=== PATIENT | male | born 1980 | race Caucasian/White ===

== ENCOUNTER 2022-07-09 08:43 | Inpatient (IN) | payer MEDICAID, SELFPAY ==
[2022-07-09] VITALS (14 sets, daily range): BP systolic 145–221; BP diastolic 96–152; PULSE 74–105; RESP 12–105; TEMP 36.4–37; O2SAT 93–98; BMI 42.3; BMI 43.6
--- NOTE | 2022-07-09 08:53 | EKG12_ITS ---
Test Reason : Blood Pressure : / mmHG Vent. Rate : 102 BPM Atrial Rate : 102 BPM P-R Int : 164 ms QRS Dur : 102 ms QT Int : 374 ms P-R-T Axes : 061 -11 108 degrees QTc Int : 487 ms Sinus tachycardia T wave abnormality, consider lateral ischemia Abnormal ECG Confirmed by SHABBIR BULL, MAYELIN ([id number]), school photograph editor CADEN SPEARS ([id number]) on 07/10/2022 9:55:19 AM Referred By: EDSON Confirmed By:MAYELIN SHEA MD
--- NOTE | 2022-07-09 09:05 | RAD_ITS ---
STUDY: X-RAY CHEST REASON FOR EXAM: Male, 42 years old. SOB TECHNIQUE: Single AP portable view of the chest. COMPARISON: None. FINDINGS: EKG electrodes are seen. Increased interstitial markings with Francesco B line suggests a mild degree of CHF. There is no demonstrated pleural abnormality. There is mild cardiac enlargement. Normal mediastinum and tessy. Normal visualized pulmonary arteries. Normal visualized aortic arch and descending thoracic aorta. There are degenerative changes of the visualized thoracic spine. Normal visualized ribs, clavicles, and shoulders. There is no demonstrated abnormality of the visualized soft tissue structures of the upper abdomen. RAD/Chest 1 View IMPRESSION: Findings suggestive of a mild degree of CHF. Mild cardiomegaly. Electronically Signed: Be Dubon MD at 9:46 EST ,
--- NOTE | 2022-07-09 09:09 | ED.VIS.DYS ---
HPI History of Present Illness Chief Complaint: Shortness of Breath Detail of Chief Complaint: 1 to 2 weeks. Informant: patient Onset/Context/Timing Onset: Weeks Context: gradual Timing: Continuous Quality: Positive for Orthopnea Current Severity: Mild Maximum Severity: 6/10 Worsened by: Lying flat Relieved by: Nothing Associated Symptoms cough and white sputum; Negative for fever, chills or sweats Chest Pain: Positive for Dull Narrative Narrative: 42-year-old male history of diabetes, hypertension had a stroke in February. Also history of asthma. States he has had shortness of breath for 1-1/2 to 2 weeks. Cough of white sputum. No hemoptysis. Does have atypical left-sided chest discomfort that is not associated with exertion. Denies any leg pain or swelling. No history of DVT or PE. Negative stress test about a year ago. Has never had a cardiac catheterization. Were supine. Denies any fever or chills. PE Risk Factors: Negative for Cancer, OCP + Smoking + > 35, Prior DVT or PE, Recent immobilization, Recent surgery or Recent travel Prior similar symptoms: No Recent Illness/Hospitalization: No PFSH PFSH Medical History Asthma Diabetes Hx of completed stroke Hypertension Home Medications dulaglutide 0.75 mg/0.5 mL subcutaneous pen injector (Trulicity) mg subcut QWEEK 07/09/22 [History Last Taken Unknown] insulin glargine 100 unit/mL subcutaneous solution (Lantus U-100 Insulin) 19 unit subcut BID 07/09/22 [History Last Taken Unknown] Allergy/AdvReac Type Severity Reaction Status Date / Time No Known Allergies Allergy Verified 07/09/22 08:44 Surgical History History of foot surgery Social History Smoking Status: Former smoker ROS ROS ED ROS Narrative Shortness of breath. Review of Systems ROS Unobtainable: Denies due to encephalopathy Constitutional Constitutional ED: Denies chills or fever(s) Eyes Eyes: Denies blurry vision ENT ENT ED: Denies ear pain Cardiovascular Cardiovascular: Reports chest pain; Denies palpitations or racing heartbeat Respiratory/Chest Respiratory/Chest: Reports cough and dyspnea Gastrointestinal Gastrointestinal: Denies abdominal pain Genitourinary Genitourinary ED: Denies dysuria or hematuria Musculoskeletal Musculoskeletal: Denies arthralgias Integumentary Denies abscess Neurologic Neurologic: Denies headache(s) Psychiatric Psychiatric: Denies anxiety or depression Endocrine Endocrinology: Denies cold intolerance Hematologic/Lymphatic Hematologic/Lymphatic: Denies easy bleeding Allergic/Immunologic Allergic/Immunologic ED: Denies mouth swelling or tongue swelling EXAM Physical Exam Narrative Exam Narrative: 42-year-old male no acute distress. Vital signs are stable. Blood pressure elevated 178/110. Pulse ox 93% on room air no hypoxia. H EENT exam unremarkable. Neck nontender. No JVD. No lymphadenopathy. Lungs clear to auscultation bilaterally. Heart tachycardic rate about 105 no murmur. Chest wall nontender. Abdomen soft nontender. Moving all 4 extremities. Equal symmetrical radial pulses. Calves are nontender that edema or cords. Neurologically is awake and alert with no focal motor deficits. Const Vital Signs: 07/09/22 08:44 07/09/22 08:49 07/09/22 08:49 Temperature 97.8 F Temperature Source Temporal Pulse Rate 102 H Respiratory Rate 18 105 H Respiratory Effort Respiratory Depth Respiratory Pattern Blood Pressure 178/110 H Blood Pressure Mean 132 Pulse Ox 93 95 Oxygen Delivery Method Room Air Room Air Room Air 07/09/22 08:59 07/09/22 09:04 07/09/22 09:07 Temperature Temperature Source Pulse Rate 105 H 104 H Respiratory Rate 20 H 20 H Respiratory Effort Normal Respiratory Depth Normal Respiratory Pattern Normal Blood Pressure 203/135 H Blood Pressure Mean 157 Pulse Ox 94 93 Oxygen Delivery Method Room Air Room Air 07/09/22 11:37 Temperature Temperature Source Pulse Rate 91 Respiratory Rate 17 Respiratory Effort Respiratory Depth Respiratory Pattern Blood Pressure 221/128 H Blood Pressure Mean 159 Pulse Ox 96 Oxygen Delivery Method Room Air Positive well nourished, well developed and obese; Negative for cachectic, contractures or unkempt General Appearance ED: well developed and NAD; Negative for unkempt, cachectic, contractures or pallor Nutritional Appearance: obese; Negative for cachectic HEENT Reports moist mucous membranes; Denies dry mucous membranes atraumatic; Negative for trauma or tenderness Mouth ED: No dry mucous membranes Mouth: No dry mucous membranes Eyes PERRL and EOMs intact bilaterally General Eye ED: Negative for pale conjunctiva or scleral icterus Neck no lymphadenopathy, supple, no meningeal signs and no JVD General: Negative for tenderness Lymph Lymphatic: Negative for other Chest Wall Chest: Negative for other Resp normal respiratory effort and clear to auscultation bilaterally Effort and Inspection: Negative for pain with movement Auscultation: Negative for rales, rhonchi or wheezes Cardio regular rhythm, S1 normal heart sound, S2 normal heart sound and no murmurs; Negative for regular rate Rate: tachycardic Rhythm: Negative for abnormal rhythm GI non-tender, non-distended and no masses Inspection: Negative for other Auscultation: normoactive bowel sounds Palpation: soft; Negative for tender or guarding Back/Spine no CVA tenderness; Negative for normal to inspection General Back: Negative for CVA tenderness Extremity normal to inspection General Extremety ED: Negative for edema or tenderness General Extremity: Negative for edema Neuro oriented x3 Sensorium / Orientation: alert, oriented to person, oriented to place and oriented to time; Negative for orientation impaired, confused, lethargic or stuporous Motor Exam: strength 5/5 throughout Psych mental status grossly normal Appearance: Negative for unkempt Attitude: No agitated Mood & Affect: Negative for depressed, anxious or tearful Thought Process: normal thought process Skin no wounds and skin turgor normal General Skin Exam: Negative for jaundice or pallor Rashes: no rashes Trauma: Negative for abrasion or laceration MDM MDM MDM Narrative Medical decision making narrative: 42-year-old male with shortness of breath for 1 to 2 weeks. History of prior stroke, diabetes and hypertension. Negative stress test within the last year. No prior heart cath. No history of DVT or PE. No recent travel, surgery or immobilization. Patient undergo cardiac work-up along with a chest x-ray for possible pneumonia versus effusion versus failure. Also COVID test. Patient has pulmonary edema on his chest x-ray. He has been noncompliant with his blood pressure medication for a year due to he is having difficulty affording it. I think he has CHF from chronic hypertension and medical noncompliance. I spoke to mortgage banker on-call and we agreed the patient should be admitted for further evaluation and blood pressure control. Discussed that with the patient is comfortable with the plan. I will give him a dose of IV Lasix and determine if we need to control his blood pressure Lab Data Attestation: I reviewed the patient's lab results. Lab results narrative: CBC shows a white count of 14.4. H&H of 15 and 47. Platelets 270. Electrolytes show a gap of 3 normal BUN of 12 creatinine 0.8. Glucose 189. Troponin is normal at 54. COVID test is negative. Labs: Laboratory Results - last 24 hr 07/09/22 07/09/22 09:13 09:13 WBC 14.4 H RBC 5.51 Hgb 15.2 Hct 47.0 MCV 85.3 MCH 27.6 MCHC 32.3 RDW Std Deviation 44.1 H RDW Coeff of Jono 14.1 Plt Count 270 MPV 10.0 Immature Gran % (Auto) 0.500 Neut % (Auto) 71.1 H Lymph % (Auto) 17.8 L [place] % (Auto) 8.6 Eos % (Auto) 1.4 Baso % (Auto) 0.6 Absolute Neuts (auto) 10.2 H Absolute Lymphs (auto) 2.56 Nucleated RBC % 0 Sodium 138 Potassium 4.5 Chloride 105 Carbon Dioxide 30.0 Anion Gap 3 L BUN 12 Creatinine 0.82 Estim Creat Clear Calc 118.70 Est GFR (MDRD) Af Amer 130 Est GFR (MDRD) Non-Af 108 BUN/Creatinine Ratio 14.5 Glucose 189 H Calcium 8.8 Troponin I High Sens 54 Radiography Chest X-Ray - ED: 1 View, Read by ED Physician, Read by Radiologist, Mediastinum, Bony Structures, Cardiomegaly and CHF Diagnostic Testing: Clinical Impression(s) from Imaging Studies Chest X-Ray 07/09/22 09:05 IMPRESSION: Findings suggestive of a mild degree of CHF. Mild cardiomegaly. Electronically Signed: Be Dubon MD at 9:46 EST , Chest x-ray shows pulmonary edema consistent with CHF. No infiltrate. Single view interpreted both by myself and the radiologist. Mild cardiomegaly. Rhythm Strip Rhythm Strip: Sinus Tach Rate: 102 Ectopy: None EKG Initial EKG: Attestation: I personally reviewed and interpreted this EKG as follows: Interpretation: No Acute Injury Pattern and Sinus Tachycardia Comments: Sinus tachycardia rate of 1002 no acute signs SC. This exam and change from an EKG from 2017. Prior: Unchanged Discharge Plan Triage Chief Complaint: Shortness of Breath ED Provider: Tyrone Ford Dx/Rx/DC Orders Clinical Impression: CHF (congestive heart failure), Acute dyspnea, Hypertension Prescriptions: No Action insulin glargine [Lantus U-100 Insulin] 100 unit/mL Solution 19 unit SUBCUT BID Trulicity 0.75 mg/0.5 mL Pen Injector SUBCUT QWEEK Primary Care Provider: Cm Hand Referrals: Cm Hand DO [Primary Care Provider] - Disposition Disposition: Acute Care Hospital [facility]
[2022-07-09 09:24] LABS: Absolute Lymphocyte Count 2.56 X10^3/uL (0.83-4.51); Absolute Neutrophil Count 10.2 X10^3/uL (2.0-7.7); Basophil# 0.08 X10^3/uL; Basophil% 0.6 % (0-1); Eosinophils% 1.4 % (0-5); Hemoglobin 15.2 g/dL (13.0-16.5); Lymphocyte # 2.56 X10^3/ul (0.83-4.51); Lymphocyte % 17.8 % (19-41); Mean Corp Hgb Conc 32.3 g/dL (32-36); Mean Corpuscular Hgb 27.6 pg (27.0-32.0); Mean Corpuscular Volume 85.3 fL (80-94); Monocyte# 1.24 X10^3/uL; Monocyte% 8.6 % (0-10); NRBC Flagged by Analyzer 0 % (0-5); Neutrophil # 10.24 X10^3/uL (2.7-7.7); Neutrophil % 71.1 % (47-70); Platelet Count 270 K/mm3 (150-450); RBC Distribution Width CV 14.1 % (11.6-14.6); RBC Distribution Width SD 44.1 fl (35.1-43.9); Red Blood Count 5.51 M/mm3 (4.6-6.2); White Blood Count 14.4 K/mm3 (4.4-11.0)
[2022-07-09 09:43] LABS: Anion Gap 3 (5-15); BUN 12 mg/dL (7-18); BUN/Creat Ratio 14.5 RATIO (10-20); Calcium,Total 8.8 mg/dL (8.5-10.1); Chloride 105 mmol/L (98-107); Creatinine, Serum 0.82 mg/dL (0.70-1.30); EST Glomerular Filtration Rate 108 mL/min (>60); Est Glom Filt Rate - Afr Amer 130 mL/min (>60); Glucose 189 mg/dL (74-106); Potassium 4.5 mmol/L (3.5-5.1); Sodium Level 138 mmol/L (136-145); Troponin-I HS 54 pg/mL (3.0-78.0)
[2022-07-09] MEDS: Metoprolol Tartrate 5 MG/5 ML Vial IV ×3 (13:24→13:34)
[2022-07-09] MEDS: Furosemide 40 MG/4 ML Vial IV ×2 (13:37→17:20)
--- NOTE | 2022-07-09 13:41 | HP.PCM.HOS_ITS ---
HPI - General General Date of Service: 07/09/22 Chief Complaint: Shortness of breath HPI Narrative CELY ANN, is a 42 M who presents with increasing shortness of breath. Patient states that he actually gets it when he lays flat. Symptoms have persisted over the past week and sought evaluation. Patient had chest x-ray that is concerning for pulmonary vascular congestion. Patient's blood pressures were elevated in the 200s. They reached out to cardiology recommended bring patient in for further evaluation. They spoke with me and I advised giving him something for his blood pressure and patient received 5 mg of IV metoprolol. Patient additionally also received 40 mg of IV furosemide. Patient denies have a history of heart disease [facility] Medical History (Updated 07/09/22 @ 13:[address] Tristan Sanon DO) Asthma Diabetes Hx of completed stroke Hypertension JARAD (obstructive sleep apnea) Home Medications dulaglutide 0.75 mg/0.5 mL subcutaneous pen injector (Trulicity) 0.75 mg subcut QWEEK DM 07/09/22 [History Last Taken 07/05/22] insulin glargine 100 unit/mL subcutaneous solution (Lantus U-100 Insulin) 19 unit subcut BID DM 07/09/22 [History Last Taken 07/08/22] Allergy/AdvReac Type Severity Reaction Status Date / Time No Known Allergies Allergy Verified 07/09/22 08:44 Family History (Updated 07/09/22 @ 13:[address] Tristan Sanon DO) Other Heart disease Surgical History History of foot surgery Social History (Updated 07/09/22 @ 13:[address] Tristan Sanon DO) Smoking Status: Former smoker substance use type: marijuana ROS ROS Narrative Lower extremity edema. No chest pain or palpitations. Does get diaphoretic with his dyspnea. ROS Vital Signs Vital Signs Vital Signs: 07/09/22 08:44 07/09/22 08:49 07/09/22 08:49 Temperature 36.6 C Temperature Source Temporal Pulse Rate 102 H Respiratory Rate 18 105 H Respiratory Effort Respiratory Depth Respiratory Pattern Blood Pressure 178/110 H Blood Pressure Mean 132 Pulse Ox 93 95 Oxygen Delivery Method Room Air Room Air Room Air 07/09/22 08:59 07/09/22 09:04 07/09/22 09:07 Temperature Temperature Source Pulse Rate 105 H 104 H Respiratory Rate 20 H 20 H Respiratory Effort Normal Respiratory Depth Normal Respiratory Pattern Normal Blood Pressure 203/135 H Blood Pressure Mean 157 Pulse Ox 94 93 Oxygen Delivery Method Room Air Room Air 07/09/22 11:37 Temperature Temperature Source Pulse Rate 91 Respiratory Rate 17 Respiratory Effort Respiratory Depth Respiratory Pattern Blood Pressure 221/128 H Blood Pressure Mean 159 Pulse Ox 96 Oxygen Delivery Method Room Air Weight Weight: 133.8 kg Body Mass Index (BMI) 42.3 Physical Exam Const alert and no apparent distress HEENT normocephalic, head/scalp atraumatic, hearing grossly normal bilaterally and moist oral mucous membranes Neck no lymphadenopathy Neck Narrative: Thick neck tissue but could not see any JVD Resp normal respiratory effort and no retractions Resp Narrative: Diminished breath sounds bilaterally Cardio regular rate, regular rhythm, S1 normal heart sound and S2 normal heart sound GI normal to inspection, nondistended, normoactive bowel sounds, soft to palpation, non-tender and non-distended Extremity normal to inspection Neuro moves all extremities Psych affect normal Results Lab / Micro Data Result Diagrams: 07/09/22 09:13 07/09/22 09:13 Labs: Laboratory Results - last 24 hr 07/09/22 09:13: WBC 14.4 H, RBC 5.51, Hgb 15.2, Hct 47.0, MCV 85.3, MCH 27.6, MCHC 32.3, RDW Std Deviation 44.1 H, RDW Coeff of Jono 14.1, Plt Count 270, MPV 10.0, Immature Gran % (Auto) 0.500, Neut % (Auto) 71.1 H, Lymph % (Auto) 17.8 L, [place] % (Auto) 8.6, Eos % (Auto) 1.4, Baso % (Auto) 0.6, Absolute Neuts (auto) 10.2 H, Absolute Lymphs (auto) 2.56, Nucleated RBC % 0 07/09/22 09:13: Sodium 138, Potassium 4.5, Chloride 105, Carbon Dioxide 30.0, Anion Gap 3 L, BUN 12, Creatinine 0.82, Estim Creat Clear Calc 118.70, Est GFR (MDRD) Af Amer 130, Est GFR (MDRD) Non-Af 108, BUN/Creatinine Ratio 14.5, Glucose 189 H, Calcium 8.8, Troponin I High Sens 54 Micro: Microbiology 07/09/22 09:13 Nasal Secretion SARS-CoV-2 Antigen (Rapid) - Final Rhythm Strip Rhythm Strip: Sinus Tach Rate: 102 Ectopy: None Radiology Impression Chest X-Ray 07/09/22 09:05 IMPRESSION: Findings suggestive of a mild degree of CHF. Mild cardiomegaly. Electronically Signed: Be Dubon MD at 9:46 EST , Assessment & Plan Assessment/Plan (1) CHF (congestive heart failure): PLAN: Unclear type Continue with furosemide 40 mg IV twice daily Check echo Consult cardiology Patient does have untreated obstructive sleep apnea so there may be a component of pulmonary vascular hypertension (2) Hypertensive urgency: PLAN: Patient received 4 mg of furosemide and 5 mg of metoprolol in the emergency room. Start lisinopril 20 mg twice daily Hold off on further beta-blockers in light of heart failure As needed hydralazine (3) Diabetes: PLAN: Type II Insulin-dependent Continue with glargine Sliding scale insulin PLAN: Plan Chronic conditions * JARAD: Noncompliant with CPAP and has not used in years. May be complicating his heart failure management in the long-term. * Morbid obesity with a BMI of 42.3. Will consult nutrition for further advice and recommendations. VTE prophylaxis with subcu Charges/Coding Visit Charges Inpatient E&M: 55216 Init Hosp L3
--- NOTE | 2022-07-09 16:48 | ECHOCS_ITS ---
Reason For Study: CHF Procedure This was a 2D Doppler, Color Flow transthoracic echocardiogram. The study was technically difficult. Contrast injection was performed. Exam performed portable in patient room. Left Ventricle Normal LV size. Moderate concentric left ventricular hypertrophy. Left ventricular systolic function is normal. The estimated ejection fraction is 53 %. No regional wall motion abnormalities noted. Right Ventricle Normal RV size. Normal systolic function. Atria The left atrium is moderately enlarged. Mitral Valve Mitral valve not well visualized. Tricuspid Valve The tricuspid valve is not well visualized. Pulmonic Valve The pulmonic valve is not well visualized. Great Vessels Normal aortic root. The pulmonary artery is normal size. Pericardium/Pleural No pericardial effusion. Medication Diluted definity 1.5ml given slow IV push to enhance endocardial definition. MMode/2D Measurements & Calculations LVIDd: 5.7 cm IVSd: 1.8 cm Ao root diam: 3.5 cm LVIDs: 5.0 cm LVPWd: 1.4 cm LA dimension: 4.7 cm FS: 12.0 % LAV(MOD-bp): 78.6 ml LVAd ap4: 46.4 cm2 SV(MOD-sp4): 73.6 ml LAV(MOD-bp) Indexed: 31.9 ml/m2 LVLd ap4: 9.0 cm LAV(MOD-sp2): 62.9 ml EDV(MOD-sp4): 196.3 ml LAV(MOD-sp4): 92.8 ml EDV(sp4-el): 203.6 ml LVAs ap4: 34.7 cm2 LVLs ap4: 8.3 cm ESV(MOD-sp4): 122.7 ml ESV(sp4-el): 123.1 ml EF(MOD-sp4): 37.5 % EF(sp4-el): 39.5 % SV(sp4-el): 80.5 ml LA A4 area: 26.2 cm2 Time Measurements MV dec time: 0.15 sec Doppler Measurements & Calculations MV E max terry: 97.6 cm/sec Lat Peak E' Terry: 7.9 cm/sec Med Peak E' Terry: 8.6 cm/sec MV A max terry: 57.8 cm/sec E/E' lat: 12.4 E/E' med: 11.3 MV E/A: 1.7 MV V2 max: 125.5 cm/sec MV P1/2t max terry: 130.6 cm/sec Ao V2 max: 114.2 cm/sec MV max P.3 mmHg MV P1/2t: 51.1 msec Ao max P.2 mmHg MV V2 mean: 60.8 cm/sec MV mean P.8 mmHg MV dec slope: 748.5 cm/sec2 MV V2 VTI: 19.6 cm MVA(P1/2t): 4.3 cm2 LV V1 max: 107.9 cm/sec PA V2 max: 91.2 cm/sec LV V1 max P.7 mmHg PA V2 mean: 61.7 cm/sec ECHO/Echo Complete W/ Contrast Interpretation Summary Normal LV size. Left ventricular systolic function is normal. The estimated ejection fraction is 53 %. Moderate concentric left ventricular hypertrophy. Contrast injection was performed. Ordering Physician: Tristan Sanon Referring Physician: Cm Hand Performed By: Memo Ibarra RCS
[2022-07-09] MEDS: Lisinopril 20 MG Tablet PO ×2 (17:20→20:44)
[2022-07-09] MEDS: Insulin Lispro 100 UNIT/ML INSULN.PEN SC (17:28)
--- NOTE | 2022-07-09 17:38 | PCM.CONS.C ---
Assessment & Plan Assessment/Plan (1) Hypertensive urgency: PLAN: Patient presents with hypertensive urgency. He does have a known history of hypertension. I will recommend that we obtain an echocardiogram to assess his ventricular function. His electrocardiogram did not demonstrate any acute changes. In the meantime I will recommend that we start him on the following Lisinopril 20 mg twice a day Add amlodipine 10 mg a day Depending on the results of the echocardiogram we will consider an additional agent together with his blood pressure response over the next 24 hours. (2) CHF (congestive heart failure): PLAN: He does have likely diastolic heart failure. I will like to obtain a natruretic peptide level. The echocardiogram would help in assessing his ventricular function. Depending on those findings further recommendations will be made. I have told him about the importance of compliance with his medications. He appears to understand. Thank you for allowing me to participate in the care of your patient. Please don't hesitate to call if any issues arise. HPI Consult Data Date of Consult: 07/09/22 HPI Narrative HPI Narrative: CELY ANN, is a 42 M who presents to the emergency room with complaints of shortness of breath. He says that he is a known hypertensive but has not been compliant with his medications because he cannot afford them. He also has a history of diabetes mellitus. He has apparently been applying for disability and has not been able to get that taken care of. He therefore presented to the emergency room where his blood pressure was noted to be over 200 mmHg systolic. Cardiology was called for further evaluation and management. At this particular time he denies any chest pain or shortness of breath or paroxysmal nocturnal dyspnea or pedal edema. His electrocardiogram in the emergency room demonstrated sinus rhythm with no acute changes. REPLACED BY [facility] Medical History Asthma Diabetes Hx of completed stroke Hypertension JARAD (obstructive sleep apnea) Home Medications dulaglutide 0.75 mg/0.5 mL subcutaneous pen injector (Trulicity) 0.75 mg subcut QWEEK DM 07/09/22 [History Last Taken 07/05/22] insulin glargine 100 unit/mL subcutaneous solution (Lantus U-100 Insulin) 19 unit subcut BID DM 07/09/22 [History Last Taken 07/08/22] Allergy/AdvReac Type Severity Reaction Status Date / Time No Known Allergies Allergy Verified 07/09/22 08:44 Family History Other Heart disease Surgical History History of foot surgery Social History Smoking Status: Former smoker substance use type: marijuana ROS Constitutional Constitutional: Denies fever(s) or weight loss Eyes Eyes: Reports systems reviewed and no addt'l complaints, except as documented ENT HEENT: Reports systems reviewed and no addt'l complaints, except as documented Cardiovascular Cardiovascular: Reports dyspnea at rest and dyspnea on exertion; Denies chest pain at rest, chest pain with activity, edema, palpitations or paroxysmal nocturnal dyspnea Respiratory/Chest Respiratory/Chest: Reports shortness of breath at rest and shortness of breath with exertion; Denies dyspnea on exertion or productive cough Gastrointestinal Gastrointestinal: Denies change in bowel habits, nausea, vomiting or weight changes Genitourinary Genitourinary: Denies difficulty urinating Musculoskeletal Musculoskeletal: Denies joint stiffness or muscle weakness Integumentary Integumentary: Denies lesions Neurologic Neurologic: Denies dizziness or syncope Psychiatric Psychiatric: Denies anxiety Endocrine Endocrinology: Denies excessive sweating or fatigue Hematologic/Lymphatic Hematologic/Lymphatic: Denies anemia Allergic/Immunologic Allergic/Immunologic: Denies seasonal rhinorrhea Physical Exam Const alert, oriented x3 and no apparent distress General Appearance: cooperative HEENT hearing grossly normal bilaterally Head and Scalp: atraumatic Eyes EOMs intact bilaterally Neck General: normal visual inspection Chest inspection of chest normal and palpation of chest normal Resp normal respiratory effort Auscultation: clear to auscultation bilaterally Cardio regular rate, regular rhythm, S1 normal heart sound and S2 normal heart sound Jugular Venous Distention: JVD GI normal to inspection, nondistended, normoactive bowel sounds Extremity normal capillary refill and no pedal edema Peripheral Pulses: Yes pulses 2+ throughout and femoral pulses present Skin no rashes or lesions noted Neuro oriented x3 and CN's II-XII intact bilaterally Psych Appearance: grossly normal and appropriate Risk Stratification Risk Stratification Applicable: No Objective Data Vital Signs: Vital Signs Temp Pulse Resp BP Pulse Ox O2 Del Method O2 Flow Rate 98.0 F 87 18 174/108 H 96 Nasal Cannula 2 02/27/23 16:59 07/09/22 16:59 07/09/22 16:59 07/09/22 16:59 07/09/22 16:59 07/09/22 16:59 07/09/22 16:59 Oxygen Flow Rate (L/min) 2 Oxygen Delivery Method Nasal Cannula Weight: 295 lb 6.711 oz Body Mass Index (BMI) 43.6 Lab / Micro Data Result Diagrams: 07/09/22 09:13 07/09/22 09:13 Labs: Laboratory Results - last 24 hr 07/09/22 09:13: WBC 14.4 H, RBC 5.51, Hgb 15.2, Hct 47.0, MCV 85.3, MCH 27.6, MCHC 32.3, RDW Std Deviation 44.1 H, RDW Coeff of Jono 14.1, Plt Count 270, MPV 10.0, Immature Gran % (Auto) 0.500, Neut % (Auto) 71.1 H, Lymph % (Auto) 17.8 L, [place] % (Auto) 8.6, Eos % (Auto) 1.4, Baso % (Auto) 0.6, Absolute Neuts (auto) 10.2 H, Absolute Lymphs (auto) 2.56, Nucleated RBC % 0 07/09/22 09:13: Sodium 138, Potassium 4.5, Chloride 105, Carbon Dioxide 30.0, Anion Gap 3 L, BUN 12, Creatinine 0.82, Estim Creat Clear Calc 118.70, Est GFR (MDRD) Af Amer 130, Est GFR (MDRD) Non-Af 108, BUN/Creatinine Ratio 14.5, Glucose 189 H, Calcium 8.8, Troponin I High Sens 54 Micro: Microbiology 07/09/22 09:13 Nasal Secretion SARS-CoV-2 Antigen (Rapid) - Final Rhythm Strip Rhythm Strip: Sinus Tach Rate: 102 Ectopy: None Cardiology Labs/Tests 07/09/22 09:13: WBC 14.4 H, RBC 5.51, Hgb 15.2, Hct 47.0, MCV 85.3, MCH 27.6, MCHC 32.3, Plt Count 270, MPV 10.0, Immature Gran % (Auto) 0.500, Neut % (Auto) 71.1 H, Lymph % (Auto) 17.8 L, [place] % (Auto) 8.6, Eos % (Auto) 1.4, Baso % (Auto) 0.6, Absolute Neuts (auto) 10.2 H, Nucleated RBC % 0 07/09/22 09:13: Sodium 138, Potassium 4.5, Chloride 105, Carbon Dioxide 30.0, Anion Gap 3 L, BUN 12, Creatinine 0.82, Est GFR (MDRD) Af Amer 130, Est GFR (MDRD) Non-Af 108, BUN/Creatinine Ratio 14.5, Glucose 189 H, Calcium 8.8 Rhythm: EKG: ECHO: Stress Test: Cardiac Cath: PCI: CT Surgery: Holter monitor: EPS: PPM: CXR: Chest CT Scan: Radiography Diagnostic Testing: Radiology Impression Chest X-Ray 07/09/22 09:05 IMPRESSION: Findings suggestive of a mild degree of CHF. Mild cardiomegaly. Electronically Signed: Be Dubon MD at 9:46 EST ,
[2022-07-09 18:03] LABS: BNP,B-Type NATRIURETIC PEPTIDE 105.5 pg/mL (0-100)
[2022-07-09 18:36] LABS: Bedside Glucose 188 mg/dL (74-106)
[2022-07-09 19:44] LABS: Troponin-I HS 55 pg/mL (3.0-78.0)
[2022-07-09] MEDS: Insulin Glargine-YFGN 100 UNIT/ML Pen 19 UNIT SC (20:43)
[2022-07-09] MEDS: Enoxaparin 40 MG/0.4 ML Syringe SC (20:43)
[2022-07-09] MEDS: MELATONIN 10 MG TABLET 5 MG PO (20:44)
[2022-07-09 21:20] LABS: Bedside Glucose 127 mg/dL (74-106)
[2022-07-10] VITALS (7 sets, daily range): BP systolic 135–172; BP diastolic 88–119; PULSE 86–91; RESP 16–18; TEMP 36.3–36.8; O2SAT 93–97
[2022-07-10 00:35] LABS: Troponin-I HS 71 pg/mL (3.0-78.0)
[2022-07-10 05:47] LABS: Absolute Lymphocyte Count 3.31 X10^3/uL (0.83-4.51); Absolute Neutrophil Count 7.8 X10^3/uL (2.0-7.7); Basophil# 0.07 X10^3/uL; Basophil% 0.6 % (0-1); Eosinophil# 0.18 X10^3/uL; Eosinophils% 1.4 % (0-5); Hematocrit 45.8 % (40-54); Hemoglobin 14.6 g/dL (13.0-16.5); Lymphocyte # 3.31 X10^3/ul (0.83-4.51); Lymphocyte % 26.5 % (19-41); Mean Corp Hgb Conc 31.9 g/dL (32-36); Mean Corpuscular Hgb 27.3 pg (27.0-32.0); Mean Corpuscular Volume 85.6 fL (80-94); Mean Platelet Vol. 10.4 fl (6.2-12.0); Monocyte# 1.11 X10^3/uL; Monocyte% 8.9 % (0-10); NRBC Flagged by Analyzer 0 % (0-5); Neutrophil % 62.3 % (47-70); Platelet Count 236 K/mm3 (150-450); RBC Distribution Width CV 14.2 % (11.6-14.6); RBC Distribution Width SD 44.2 fl (35.1-43.9); Red Blood Count 5.35 M/mm3 (4.6-6.2); White Blood Count 12.5 K/mm3 (4.4-11.0)
[2022-07-10 06:34] LABS: Anion Gap 4 (5-15); BUN 14 mg/dL (7-18); Calcium,Total 8.9 mg/dL (8.5-10.1); Chloride 105 mmol/L (98-107); Cholesterol 184 mg/dL (200); Creatinine, Serum 0.82 mg/dL (0.70-1.30); EST Glomerular Filtration Rate 108 mL/min (>60); Est Glom Filt Rate - Afr Amer 131 mL/min (>60); Estimated Creatinine Clearance 114.96 ml/min; Glucose 136 mg/dL (74-106); High Density Lipoprotein 29 mg/dL; Potassium 3.9 mmol/L (3.5-5.1); Sodium Level 138 mmol/L (136-145); Thyroid Stim Hormone (TSH) 1.96 uIU/mL (0.358-3.74); Triglycerides 178 mg/dL; Very Low Density Lipoprotein 36 mg/dL (5-40)
[2022-07-10 06:50] LABS: Bedside Glucose 133 mg/dL (74-106)
--- NOTE | 2022-07-10 07:36 | PCM.PN.CARD ---
Subjective Subjective Patient was seen and evaluated and appears to be doing well this morning Objective Data Vital Signs: Vital Signs Temp Pulse Resp BP Pulse Ox O2 Del Method O2 Flow Rate 98.3 F 88 18 169/95 H 94 Room Air 2 07/10/22 03:00 07/10/22 03:00 07/10/22 03:00 07/10/22 03:00 07/10/22 03:00 07/10/22 03:00 07/09/22 21:51 Oxygen Flow Rate (L/min) 2 Oxygen Delivery Method Room Air Weight: 295 lb 6.711 oz Body Mass Index (BMI) 43.6 Lab / Micro Data Result Diagrams: 07/10/22 04:38 07/10/22 04:38 Labs: Laboratory Results - last 24 hr 07/09/22 09:13: WBC 14.4 H, RBC 5.51, Hgb 15.2, Hct 47.0, MCV 85.3, MCH 27.6, MCHC 32.3, RDW Std Deviation 44.1 H, RDW Coeff of Jono 14.1, Plt Count 270, MPV 10.0, Immature Gran % (Auto) 0.500, Neut % (Auto) 71.1 H, Lymph % (Auto) 17.8 L, [place] % (Auto) 8.6, Eos % (Auto) 1.4, Baso % (Auto) 0.6, Absolute Neuts (auto) 10.2 H, Absolute Lymphs (auto) 2.56, Nucleated RBC % 0 07/09/22 09:13: Sodium 138, Potassium 4.5, Chloride 105, Carbon Dioxide 30.0, Anion Gap 3 L, BUN 12, Creatinine 0.82, Estim Creat Clear Calc 118.70, Est GFR (MDRD) Af Amer 130, Est GFR (MDRD) Non-Af 108, BUN/Creatinine Ratio 14.5, Glucose 189 H, Calcium 8.8, Troponin I High Sens 54 07/09/22 09:13: B-Natriuretic Peptide 105.5 H 07/09/22 17:18: POC Glucose 188 H 07/09/22 19:12: Troponin I High Sens 55 07/09/22 20:42: POC Glucose 127 H 07/09/22 23:59: Troponin I High Sens 71 07/10/22 04:38: WBC 12.5 H, RBC 5.35, Hgb 14.6, Hct 45.8, MCV 85.6, MCH 27.3, MCHC 31.9 L, RDW Std Deviation 44.2 H, RDW Coeff of Jono 14.2, Plt Count 236, MPV 10.4, Immature Gran % (Auto) 0.300, Neut % (Auto) 62.3, Lymph % (Auto) 26.5, [place] % (Auto) 8.9, Eos % (Auto) 1.4, Baso % (Auto) 0.6, Absolute Neuts (auto) 7.8 H, Absolute Lymphs (auto) 3.31, Nucleated RBC % 0 07/10/22 04:38: Sodium 138, Potassium 3.9, Chloride 105, Carbon Dioxide 29.0, Anion Gap 4 L, BUN 14, Creatinine 0.82, Estim Creat Clear Calc 114.96, Est GFR (MDRD) Af Amer 131, Est GFR (MDRD) Non-Af 108, BUN/Creatinine Ratio 17.0, Glucose 136 H, Calcium 8.9, Triglycerides 178, Cholesterol 184, LDL Cholesterol 119, VLDL Cholesterol 36, HDL Cholesterol 29 L, TSH 1.96 07/10/22 06:28: POC Glucose 133 H Micro: Microbiology 07/09/22 09:13 Nasal Secretion SARS-CoV-2 Antigen (Rapid) - Final Rhythm Strip Rhythm Strip: Sinus Tach Rate: 102 Ectopy: None Cardiology Labs/Tests 07/09/22 09:13: WBC 14.4 H, RBC 5.51, Hgb 15.2, Hct 47.0, MCV 85.3, MCH 27.6, MCHC 32.3, Plt Count 270, MPV 10.0, Immature Gran % (Auto) 0.500, Neut % (Auto) 71.1 H, Lymph % (Auto) 17.8 L, [place] % (Auto) 8.6, Eos % (Auto) 1.4, Baso % (Auto) 0.6, Absolute Neuts (auto) 10.2 H, Nucleated RBC % 0 07/09/22 09:13: Sodium 138, Potassium 4.5, Chloride 105, Carbon Dioxide 30.0, Anion Gap 3 L, BUN 12, Creatinine 0.82, Est GFR (MDRD) Af Amer 130, Est GFR (MDRD) Non-Af 108, BUN/Creatinine Ratio 14.5, Glucose 189 H, Calcium 8.8 07/09/22 09:13: B-Natriuretic Peptide 105.5 H 07/10/22 04:38: WBC 12.5 H, RBC 5.35, Hgb 14.6, Hct 45.8, MCV 85.6, MCH 27.3, MCHC 31.9 L, Plt Count 236, MPV 10.4, Immature Gran % (Auto) 0.300, Neut % (Auto) 62.3, Lymph % (Auto) 26.5, [place] % (Auto) 8.9, Eos % (Auto) 1.4, Baso % (Auto) 0.6, Absolute Neuts (auto) 7.8 H, Nucleated RBC % 0 07/10/22 04:38: Sodium 138, Potassium 3.9, Chloride 105, Carbon Dioxide 29.0, Anion Gap 4 L, BUN 14, Creatinine 0.82, Est GFR (MDRD) Af Amer 131, Est GFR (MDRD) Non-Af 108, BUN/Creatinine Ratio 17.0, Glucose 136 H, Calcium 8.9, Triglycerides 178, Cholesterol 184, LDL Cholesterol 119, VLDL Cholesterol 36, HDL Cholesterol 29 L Rhythm: EKG: ECHO: Stress Test: Cardiac Cath: PCI: CT Surgery: Holter monitor: EPS: PPM: CXR: Chest CT Scan: Radiography Diagnostic Testing: Radiology Impression Chest X-Ray 07/09/22 09:05 IMPRESSION: Findings suggestive of a mild degree of CHF. Mild cardiomegaly. Electronically Signed: Be Dubon MD at 9:46 EST , Physical Exam Const alert, oriented x3 and no apparent distress General Appearance: cooperative HEENT hearing grossly normal bilaterally Head and Scalp: atraumatic Eyes EOMs intact bilaterally Neck General: normal visual inspection Chest inspection of chest normal and palpation of chest normal Resp normal respiratory effort Auscultation: clear to auscultation bilaterally Cardio regular rate, regular rhythm, S1 normal heart sound and S2 normal heart sound Jugular Venous Distention: JVD GI normal to inspection, nondistended, normoactive bowel sounds Extremity normal capillary refill and no pedal edema Peripheral Pulses: Yes pulses 2+ throughout and femoral pulses present Skin no rashes or lesions noted Neuro oriented x3 and CN's II-XII intact bilaterally Psych Appearance: grossly normal and appropriate Assessment & Plan Assessment/Plan (1) Hypertensive urgency: PLAN: Patient presents with hypertensive urgency. He does have a known history of hypertension. I will recommend that we obtain an echocardiogram to assess his ventricular function. His electrocardiogram did not demonstrate any acute changes. In the meantime I will recommend that we start him on the following Lisinopril 20 mg twice a day Add amlodipine 10 mg a day Depending on the results of the echocardiogram we will consider an additional agent together with his blood pressure response over the next 24 hours. (2) CHF (congestive heart failure): PLAN: He does have likely diastolic heart failure this however appears to be minimal based on his natruretic peptide level. The echocardiogram would help in assessing his ventricular function. Depending on those findings further recommendations will be made. I have told him about the importance of compliance with his medications. He appears to understand. Thank you for allowing me to participate in the care of your patient. Please don't hesitate to call if any issues arise.
[2022-07-10 08:30] LABS: Hemoglobin A1c 7.2 % (3.8-5.6)
[2022-07-10] MEDS: Enoxaparin 40 MG/0.4 ML Syringe SC (09:07)
[2022-07-10] MEDS: hydroCHLOROthiazide 25 MG Tablet PO (09:07)
[2022-07-10] MEDS: amLODIPine 10 MG Tablet PO (09:07)
[2022-07-10] MEDS: Lisinopril 20 MG Tablet PO (09:07)
[2022-07-10] MEDS: Insulin Lispro 100 UNIT/ML INSULN.PEN SC (10:58)
[2022-07-10] MEDS: Insulin Glargine-YFGN 100 UNIT/ML Pen 19 UNIT SC (10:58)
--- NOTE | 2022-07-10 11:33 | CASEMGMT ---
[facility] met with patient as he is listed as self pay. Patient said he applied for Medicaid a year ago and was denied. Patient also applied for disability and was denied. 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 Patient does see Dr Cm Hand when he can. Patient said he cannot afford his medications. SW provided patient with information on prescription assistance programs, [employer], and a Medicaid application. SW will review patient's medications to see if there are any assistance programs available. Danna Jane SYSTEM ADMINISTRATION ADVISORRox CIFUENTES
[2022-07-10 11:40] LABS: Bedside Glucose 210 mg/dL (74-106)
[2022-07-10] MEDS: cloNIDine HCl 0.2 MG Tablet PO (12:00)
--- NOTE | 2022-07-10 13:25 | CASEMGMT ---
RN CM Face to Face with patient for initial transition planning/care coordination assessment. RN CM introduced self and role at [facility]. Patient sitting in chair, alert and oriented. Patient willing to participate in assessment and is able to answer all questions appropriately. Care providers, pharmacy, and demographics verified. Patient wishes to discharge home, denies need for home health at this time. Patient states he has no further needs or concerns at this time. CM to follow for discharge planning needs that may arise. PCP: [facility] Specialists: none Preferred Pharmacy: [facility] retail Insurance: none Prescription Benefit: none, patient to use RX assistance at [facility] Rx Living Will/HPOA: none LNOK: mina Living Arrangements: Patient lives with his mother in a single story home in the basement. Patient is independent and ambulates stairs. Transportation: self, mother DME/HHC: Patient has cane, raised toilet, cane, walker, glucometer with supplies. Patient denies previous HHC or SNF. Disposition Plan: Patient to discharge home with family support and follow-up plans in place. Melida LOJA, RN, CM
--- NOTE | 2022-07-10 14:09 | CHAPLAIN ---
Type of Pastoral Visit _x__ Initial Visit ___ Follow-up Visit ___ On-call Visit ___ General Patient Visit ___ Spiritual Assessment ___ Family Conference ___ Bereavement ___ Rapid Response ___ Code Blue ___ Other (describe below) Pastoral Care Referral From _x__ Patient ___ Family ___ Nurse ___ Physician ___ Stave Mill Hand ___ Assessment Coordinator ___ Other (describe below) Sacrament/Intervention _x__ Active listening ___ Anointing ___ Mandaen ___ Bereavement ___ Communion ___ Mery exploration ___ ___ Life review _x__ Prayer ___ Reconciliation ___ Sacrament of Sick _x__ Supportive presence ___ Wedding ___ Other (describe below) Pastoral Comments patient says he is waiting to be discharged hopefully; pt states he is doing okay; however with more time patient acknowledges that this is because I need to do better with follow up from my stroke; pt states his concern is more for his mother who has cancer; pt disappointed that he was not able to mom to her appointment today; pt welcomes prayer as a good way to address his needs
--- NOTE | 2022-07-10 15:31 | PCM.DC ---
Discharge Instructions Diet Discharge Diet: 1800 Calorie Control Diet Activity Discharge Activity: Return to Normal Activity Weight Bearing Status: Full weight bearing Follow Up Care Test Results: Test results from this visit will be discussed in further detail at your follow-up appointment, if applicable. Discharge Plan Admission Admit Date/Time: 07/09/22 13:35 Primary Reason for Your Visit: Uncontrolled hypertension, congestive heart failure Attending Provider: Regino Durham Primary Care Provider: Cm Hand Consulting Providers: Brent Rouse ; Tristan Sanon Instructions Additional Instructions / Restrictions: See [place] at [facility] to get applied for Medicaid Discharge Orders/Prescriptions Prescriptions: New lisinopril 20 mg Tablet 40 mg PO DAILY Qty: 60 0RF Rx Instructions: Start on 07/11/2022 amlodipine 10 mg Tablet 10 mg PO DAILY Qty: 30 0RF Rx Instructions: Start on 07/11/2022 hydrochlorothiazide 25 mg Tablet 25 mg PO DAILY Qty: 30 0RF Rx Instructions: Started on 07/11/2022 aspirin 81 mg capsule 81 mg PO DAILY Qty: 30 0RF atorvastatin [Lipitor] 20 mg tablet 20 mg PO DAILY Qty: 30 0RF Continued insulin glargine [Lantus U-100 Insulin] 100 unit/mL Solution 19 unit SUBCUT BID Trulicity 0.75 mg/0.5 mL Pen Injector 0.75 mg SUBCUT QWEEK Referrals / Follow Up: Cm Hand DO [Primary Care Provider] - Luisana Damon [Non-Staff] - 07/18/22 10:30 am Disposition Disposition (needs filled in before D/C Order can be placed): Home, Self Care
--- NOTE | 2022-07-10 16:23 | CASEMGMT ---
SW utilized [facility] prescription assistance program for patient as he does not have insurance. Danna CIFUENTES
[2022-07-10 16:55] LABS: Bedside Glucose 145 mg/dL (74-106)
--- NOTE | 2022-07-10 17:26 | PCM.DC.SUM ---
Providers Date of Admission: 07/09/22 Date of Discharge: 07/10/22 Primary Care Physician: Dr. Cm Hand, Consultations 07/09/22 16:48 Consult: Cardiology Routine Consulting Provider: Brent Rouse Reason for Consult: CHF EMERGENT Consult: No MD Notified: Yes Date Notified: 07/09/22 Time Notified: 13:38 Method of Notification: ED Physician Initiated Reason For Visit: HYPERTENSIVE URGENCY Diagnosis Discharge Diagnosis (1) Hypertensive urgency: Status: Acute Code(s): I16.0 - Hypertensive urgency (2) CHF (congestive heart failure): Status: Acute Code(s): I50.9 - Heart failure, unspecified Plan 1. Hypertensive emergency #2 diastolic congestive heart failure #3 type 2 diabetes #4 noncompliance with medical regimen #5 obstructive sleep apnea #6 cerebrovascular disease by history Medications at Discharge Home Medications dulaglutide 0.75 mg/0.5 mL subcutaneous pen injector (Trulicity) 0.75 mg subcut QWEEK DM 07/09/22 insulin glargine 100 unit/mL subcutaneous solution (Lantus U-100 Insulin) 19 unit subcut BID DM 07/09/22 amlodipine 10 mg tablet 10 mg PO DAILY #30 tabs 07/10/22 aspirin 81 mg capsule 81 mg PO DAILY #30 caps 07/10/22 atorvastatin 20 mg tablet (Lipitor) 20 mg PO DAILY #30 tabs 07/10/22 hydrochlorothiazide 25 mg tablet 25 mg PO DAILY #30 tabs 07/10/22 lisinopril 20 mg tablet 40 mg PO DAILY #60 tabs 07/10/22 Hospital Course Operations None Procedures 2-D Echocardiogram Summary of Care Provided Minutes Spent on Discharge: 32 Hospital Course: This 42-year-old white male was seen in the emergency room at [facility] with shortness of breath for approximately 2 weeks. Patient is noncompliant with his medications and was supposed to be taking prescription medications but cannot afford them. Work-up in the emergency room included a chest x-ray which showed changes compatible with CHF, patient's blood pressure was markedly elevated, white count was elevated at 14.4, troponin was normal, patient's COVID test was unremarkable. Patient was admitted to PCU for hypertensive emergency and CHF, he underwent an echocardiogram which showed a normal ejection fraction, he was seen in consultation by cardiology. Patient's blood pressure medicines were adjusted, and an appointment was made for him to be seen at [facility]. On 07/10/2022, patient was seen and examined: On examination he appeared in good health and spirits. Vital signs as documented. Skin warm and dry and without overt rashes. Neck without JVD, neck was supple, trachea midline, thyroid was normal. Lungs clear bilaterally, normal air movement was noted. Heart exam notable for regular rhythm, normal sounds and absence of murmurs, rubs or gallops. Abdomen unremarkable and without evidence of organomegaly, masses, or abdominal aortic enlargement. Bowel sounds are present, abdomen is not distended. Extremities nonedematous, no cyanosis was noted, no clubbing was noted. Neuro: Cranial nerves II through XII are grossly intact, no focal motor deficits were noted, sensation to light touch and pinprick intact, motor exam 5/5 throughout. Psych: Patient is alert and oriented x3, he does not appear anxious or depressed, he does not appear agitated. Patient appears stable for discharge on 07/10/2022. Weight / BMI Weight Weight: 134 kg Body Mass Index (BMI) 43.6 ABG / Lab / Microbiology Data Result Diagrams: 07/10/22 04:38 07/10/22 04:38 Laboratory: Laboratory Results - last 24 hr 07/09/22 09:13: B-Natriuretic Peptide 105.5 H 07/09/22 17:18: POC Glucose 188 H 07/09/22 19:12: Troponin I High Sens 55 07/09/22 20:42: POC Glucose 127 H 07/09/22 23:59: Troponin I High Sens 71 07/10/22 04:38: WBC 12.5 H, RBC 5.35, Hgb 14.6, Hct 45.8, MCV 85.6, MCH 27.3, MCHC 31.9 L, RDW Std Deviation 44.2 H, RDW Coeff of Jono 14.2, Plt Count 236, MPV 10.4, Immature Gran % (Auto) 0.300, Neut % (Auto) 62.3, Lymph % (Auto) 26.5, [place] % (Auto) 8.9, Eos % (Auto) 1.4, Baso % (Auto) 0.6, Absolute Neuts (auto) 7.8 H, Absolute Lymphs (auto) 3.31, Nucleated RBC % 0 07/10/22 04:38: Sodium 138, Potassium 3.9, Chloride 105, Carbon Dioxide 29.0, Anion Gap 4 L, BUN 14, Creatinine 0.82, Estim Creat Clear Calc 114.96, Est GFR (MDRD) Af Amer 131, Est GFR (MDRD) Non-Af 108, BUN/Creatinine Ratio 17.0, Glucose 136 H, Calcium 8.9, Triglycerides 178, Cholesterol 184, LDL Cholesterol 119, VLDL Cholesterol 36, HDL Cholesterol 29 L, TSH 1.96 07/10/22 04:38: Hemoglobin A1c 7.2 H 07/10/22 06:28: POC Glucose 133 H 07/10/22 10:57: POC Glucose 210 H 07/10/22 16:17: POC Glucose 145 H Microbiology: Microbiology 07/09/22 09:13 Nasal Secretion SARS-CoV-2 Antigen (Rapid) - Final Radiography Diagnostic Testing: Radiology Impression Echocardiogram 07/09/22 16:48 Interpretation Summary Normal LV size. Left ventricular systolic function is normal. The estimated ejection fraction is 53 %. Moderate concentric left ventricular hypertrophy. Contrast injection was performed. Ordering Physician: Tristan Sanon Referring Physician: Cm Hand Performed By: Memo Ibarra RCS D/C Instructions Discharge Diet: 1800 Calorie Control Diet Weight Bearing Status: Full weight bearing Meaningful Use Info Meaningful Use Diagnoses (Choose all that apply): CHF CHF ZHANG/ARB ordered at discharge?: Yes Documented LVEF (%): 53 Discharge Plan Admission Admit Date/Time: 07/09/22 13:35 Primary Reason for Your Visit: Uncontrolled hypertension, congestive heart failure Attending Provider: Regino Durham Primary Care Provider: Cm Hand Consulting Providers: Brent Rouse ; Tristan Sanon Instructions Additional Instructions / Restrictions: See [place] at [facility] to get applied for Medicaid Discharge Orders/Prescriptions Prescriptions: New lisinopril 20 mg Tablet 40 mg PO DAILY Qty: 60 0RF Rx Instructions: Start on 07/11/2022 amlodipine 10 mg Tablet 10 mg PO DAILY Qty: 30 0RF Rx Instructions: Start on 07/11/2022 hydrochlorothiazide 25 mg Tablet 25 mg PO DAILY Qty: 30 0RF Rx Instructions: Started on 07/11/2022 aspirin 81 mg capsule 81 mg PO DAILY Qty: 30 0RF atorvastatin [Lipitor] 20 mg tablet 20 mg PO DAILY Qty: 30 0RF Continued insulin glargine [Lantus U-100 Insulin] 100 unit/mL Solution 19 unit SUBCUT BID Trulicity 0.75 mg/0.5 mL Pen Injector 0.75 mg SUBCUT QWEEK Referrals / Follow Up: Cm Hand DO [Primary Care Provider] - Luisana Damon [Non-Staff] - 07/18/22 9:30 am Disposition Disposition (needs filled in before D/C Order can be placed): Home, Self Care Charges/Coding Visit Charges Inpatient E&M: 09646 Disch Hosp >30min
--- NOTE | 2022-07-12 08:47 | CASEMGMT ---
SW had more information on prescription assistance and healthcare for patient after he was discharged. NAHUN mailed an application for assistance with Trulicity and Insulin U-100. NAHUN also sent patient information on Luisana Damon and [facility] financial assistance program. Danna CIFUENTES
== END 2022-07-10 18:12 | disposition home or self-care (01) | DRG 291 ==
LOC: ED 13:06 → PCU 15:36
PROVIDERS: Internal Medicine Cardiovascular Disease; Emergency Provider Emergency Medicine; PCP Preventive Medicine Occupational Medicine; Visit Provider Internal Medicine
DX: I11.0 Hypertensive heart disease with heart failure (principal); I50.31 Acute diastolic (congestive) heart failure; Z68.41 Body mass index [BMI] 40.0-44.9, adult; E11.9 Type 2 diabetes mellitus without complications; Z79.4 Long term (current) use of insulin; E66.01 Morbid (severe) obesity due to excess calories; I16.0 Hypertensive urgency; G47.33 Obstructive sleep apnea (adult) (pediatric); Z91.14 Patient's other noncompliance with medication regimen; Z79.82 Long term (current) use of aspirin; Z79.899 Other long term (current) drug therapy; Z86.73 Personal history of transient ischemic attack (TIA), and cerebral infarction without residual deficits; Z87.891 Personal history of nicotine dependence
CPT/HCPCS: 36415; 71045; 80048; 80061; 82962; 83036; 83880; 84443; 84484; 85025; 87811; 93005; 93306; 94760; 97802; 99285; Q9957; A4216; C8929; J1940

== ENCOUNTER 2022-11-27 11:08 | Emergency (ER) | payer MEDICAID, SELFPAY ==
[2022-11-27 11:09] VITALS: BP 173/103; PULSE 97; RESP 14; TEMP 36.6; O2SAT 98
[2022-11-27 11:16] VITALS: BMI 40.6
[2022-11-27 11:18] VITALS: BMI 40.6
--- NOTE | 2022-11-27 11:32 | CT_ITS ---
INDICATION: Left facial droop EXAMINATION: CT BRAIN - CT Head or Brain W/O Contrast Injection TECHNIQUE: Multiple axial images were obtained of the head without intravenous contrast. A radiation dose optimization technique was used for this scan. IV Contrast dosage and agent: None. RADIATION DOSAGE (If Supplied By Facility): CTDIvol = ( 44.99 ) mGy, DLP = ( 745.49 ) mGycm COMPARISON: MRI brain June 16, 2015 FINDINGS: Hyperdensity noted at 2 sites that might correlate to the basilar artery (series 2 images 8-9 and 12-13, series 602 images 40-41), there is also mild asymmetric increased density in the right middle cerebral artery compared to the left. These findings can be associated with acute thromboembolus. BRAIN PARENCHYMA: No intra- or extra-axial hemorrhage. Subtle, small rounded hypodensities in the bilateral basal ganglia on series 2 image 17 may be sequelae of old ischemic change or volume averaging artifacts of the basilar cisterns. No evidence of acute infarct. No intracranial mass or mass effect. There is preservation of the calderón/white matter interface. Posterior fossa structures are unremarkable. CSF SPACES: Appropriate for age. No hydrocephalus. Basal cisterns are patent. CALVARIUM, SKULL BASE, PARANASAL SINUSES AND MASTOID AIR CELLS: Clear. No discrete lytic or blastic abnormalities. ORBITS: Both globes, extraocular muscles, optic nerves and retrobulbar fat appear unremarkable. CT/Brain/Head without Contrast IMPRESSION: 1. Hyperdensities of uncertain significance in the basilar artery as well as the middle cerebral artery branch of the right internal carotid artery. These findings can be associated with acute thromboemboli and, if clinically suspicious, further characterization with CT angiography advised. 2. No sign of acute infarct. No intracranial hemorrhage. Electronically Signed: Roibn Blandon MD at 12:10 EDT Reading Location ID and State: [id number] / Unknown , Service support ,
--- NOTE | 2022-11-27 11:32 | CT_ITS ---
INDICATION: Neck pain, abnormal findings on brain CT EXAMINATION: CT BRAIN WITH CONTRAST TECHNIQUE: Noncontrast axial images were obtained of the brain. Subsequently, routine carotid CT angiogram protocol was performed without and with IV contrast. In addition, images were obtained of the [place]. NASCET criteria using the distal ICAs for comparison were used for evaluation of stenoses. 3D reconstructions were reviewed. A radiation dose optimization technique was used for this scan. IV Contrast dosage and agent: 100mL [id number] COMPARISON: Noncontrast CT brain November 27, 2022 11:44 hours; MRI brain June 16, 2015 FINDINGS: --CT BRAIN: BRAIN PARENCHYMA: No intra- or extra-axial hemorrhage. No evidence of acute infarct. No intracranial mass or mass effect. There is preservation of the calderón/white matter interface. Posterior fossa structures are unremarkable. CSF SPACES: Appropriate for age. No hydrocephalus. Basal cisterns are patent. CALVARIUM, SKULL BASE, PARANASAL SINUSES AND MASTOID AIR CELLS: Clear. No discrete lytic or blastic abnormalities. ASPECTS Score for Acute Strokes: 10 --CTA NECK: AORTIC ARCH AND BRANCHES: Normal anatomy, patent. RIGHT CCA: No occlusion, significant stenosis or dissection. RIGHT ICA: No occlusion, significant stenosis or dissection. LEFT CCA: No occlusion, significant stenosis or dissection. LEFT ICA: No occlusion, significant stenosis or dissection. RIGHT VERTEBRAL ARTERY: No occlusion, significant stenosis or dissection. LEFT VERTEBRAL ARTERY: No occlusion, significant stenosis or dissection. NECK SOFT TISSUES: There are number of nonspecific, borderline to mildly enlarged bilateral cervical lymph nodes. A dominant 3.3 x 1.6 x 1.0 cm left level II cervical lymph node is also noted. --CTA HEAD: --Anterior circulation: ICAs: No significant stenosis at the intracranial/visualized segments. ACAs: No significant stenosis at the visualized segments. ACOM: Present. MCAs: No significant stenosis at the visualized segments. --Posterior circulation: PCOMs: Widely patent on the right, providing collateral flow to the right posterior cerebral artery. Diminutive caliber on the left. 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 The P2 and P 3 segments primarily filled by collateral flow. BASILAR ARTERY: No significant stenosis. VERTEBRAL ARTERIES: No significant stenosis at the intradural/visualized segments. No evidence of intracranial aneurysm or vascular malformation. CT/CTA Head AND Neck W/ Contrast IMPRESSION: 1. No acute extracranial or intracranial vascular occlusion. No intracranial hemorrhage. 2. 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 The right posterior cerebral artery branches primarily filled collateral fashion via a widely patent posterior to indicating artery. 3. Numerous nonspecific, borderline to mildly enlarged bilateral cervical lymph nodes present, including a dominant 3.3 cm left level II cervical node. One might consider follow-up neck ultrasound in 3-6 months to document stability or involution. Electronically Signed: Robin Blandon MD at 12:59 EDT Reading Location ID and State: [id number] / Unknown , Service support ,
--- NOTE | 2022-11-27 11:34 | ED.VIS.STROK ---
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 He states that he awoke yesterday morning at around 8 AM with the symptoms. He did not want to come in for evaluation, but presents today because he states that he has mild neck pain, and that he has residual numbness and tingling of his left arm and leg from his previous stroke years ago, but is unsure if this has increased mainly in his left arm. He denies any exacerbating or alleviating factors. No other symptoms. PFSH PFS Medical History Asthma Diabetes Hx of completed stroke Hypertension Hypertensive urgency JARAD (obstructive sleep apnea) Home Medications dulaglutide 0.75 mg/0.5 mL subcutaneous pen injector (Trulicity) 0.75 mg subcut QWEEK DM 07/09/22 [History Last Taken 07/05/22] insulin glargine 100 unit/mL subcutaneous solution (Lantus U-100 Insulin) 19 unit subcut BID DM 07/09/22 [History Last Taken 07/08/22] acyclovir 400 mg tablet 1 tab PO 5X/DAY 10 days #50 tabs 11/27/22 [Rx Last Taken Unknown] pioglitazone 30 mg tablet 30 mg PO DAILY 11/27/22 [History Last Taken Unknown] prednisone 50 mg tablet 50 mg PO DAILY 5 days #5 tabs 11/27/22 [Rx Last Taken Unknown] Allergy/AdvReac Type Severity Reaction Status Date / Time No Known Allergies Allergy Verified 07/09/22 08:44 Family History Other Heart disease Surgical History History of foot surgery Social History Smoking Status: Current every day smoker tobacco type: cigarettes substance use type: marijuana ROS ROS ED ROS Narrative Constitutional: No fever, no chills. HEENT: No sore throat. No neck pain. No loss of vision. No rhinorrhea. Left facial droop, unable to close left eye completely. Unable to raise eyebrow on left. Cardiovascular: No chest pain. No palpitations. No pedal edema. Respiratory: No cough, no shortness of breath. Abdominal: No abdominal pain. No nausea. No vomiting. Genitourinary: No dysuria. No hematuria. Musculoskeletal: No myalgias. No arthralgias. Neurologic: No headaches. No dizziness. No lightheadedness. Questionable increased paresthesias of left arm and leg from remote stroke. Skin: No rash. No change in color. Psychiatric: No depression. No anxiety. EXAM Physical Exam Narrative Exam Narrative: Afebrile. Vital signs noted. HEENT: Normocephalic. Atraumatic. PERRL, EOMI. Neck soft and supple. No point tenderness or step off. Positive left facial droop with inability to completely close left eye, unable to raise left eyebrow. Cardiovascular: Regular rate and rhythm. No murmurs, rubs, or gallops appreciated. Respiratory: No tachypnea. Lungs clear to auscultation bilaterally. Gastrointestinal: Abdomen soft, nontender, with normoactive bowel sounds. No rebound or guarding. Neurological: Awake. Alert. Nonfocal, nonlateralizing. NIH stroke scale is 2 for the facial droop on the left. Otherwise unremarkable. Skin: No rash. Normal color. No pallor. Musculoskeletal: No pedal edema. Full range of motion extremities. Const Vital Signs: 11/27/22 11:09 11/27/22 11:25 11/27/22 13:15 Temperature 97.8 F Temperature Source Temporal Pulse Rate 97 73 Respiratory Rate 14 18 Respiratory Effort Normal Non-Labored Respiratory Pattern Normal Blood Pressure 173/103 H 145/86 H Blood Pressure Mean 126 105 Pulse Ox 98 93 Oxygen Delivery Method Room Air Room Air 11/27/22 13:50 Temperature Temperature Source Pulse Rate 78 Respiratory Rate 17 Respiratory Effort Respiratory Pattern Blood Pressure 139/90 H Blood Pressure Mean Pulse Ox 95 Oxygen Delivery Method MDM MDM MDM Narrative Medical decision making narrative: Patient is outside the window for any tPA as his symptoms began over 24 hours ago. I do not feel that stroke team should be activated. I reviewed his prior records and he does have in his problem list history of completed stroke. I do feel that he probably has more of a Mejias's palsy. However, with his reported increased tingling. I do feel that CT of the brain and CTA of the head and neck should be obtained along with baseline laboratory work. I reviewed his laboratory work and he has slightly elevated white count of 13.5 which I think is nonspecific, hemoglobin slightly hemoconcentrated 17.0 with platelet count normal at 318. Sodium is normal at 139 with potassium normal at 3.8, BUN is normal at 8 with creatinine 0.8, glucose elevated at 179 consistent with his diabetes. He has a normal anion gap of 5 so I have no concern for diabetic ketoacidosis. CT of the brain was obtained and I received a call from the radiologist which shows hyperdensities of the basilar artery and middle cerebral artery. CTA of the head and neck was also obtained. 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 The right posterior cerebral artery branches primarily filled collateral fashion via a widely patent posterior to indicating artery. Additionally numerous nonspecific, borderline to mildly enlarged bilateral cervical lymph nodes present, including a dominant 3.3 cm left level II cervical node. One might consider follow-up neck ultrasound in 3-6 months to document stability or involution. This might be the cause of his left-sided neck pain. His clinical examination is difficult to ascertain secondary to body habitus. However I do not feel antibiotics are indicated. Given that he has collateral flow of the posterior artery, I do not think that he is having an acute stroke. Additionally, I do think that he has a Mejias's palsy given his clinical examination. He will be given prescriptions for prednisone and acyclovir. He was told to use a eye lubricant so that his left eye does not dry out. I feel he can be discharged safely home with follow-up. He can follow-up with his primary care provider and/or neurology as needed. I do not feel that he requires observation for stroke work-up given that he has no acute occlusion and his clinical examination shows nothing no focal deficit on examination except for the Mejias's palsy. Disposition is discharged home in stable condition. Lab Data Labs: Laboratory Results - last 24 hr 11/27/22 11:20 WBC 13.5 H RBC 6.10 Hgb 17.0 H Hct 51.3 MCV 84.1 MCH 27.9 MCHC 33.1 RDW Std Deviation 41.5 RDW Coeff of Jono 13.6 Plt Count 318 MPV 9.7 Immature Gran % (Auto) 0.400 Neut % (Auto) 67.2 Lymph % (Auto) 21.0 [place] % (Auto) 7.9 Eos % (Auto) 2.8 Baso % (Auto) 0.7 Absolute Neuts (auto) 9.1 H Absolute Lymphs (auto) 2.84 Nucleated RBC % 0 Sodium 139 Potassium 3.8 Chloride 102 Carbon Dioxide 32.0 Anion Gap 5 BUN 8 Creatinine 0.80 Estim Creat Clear Calc 117.83 Est GFR (MDRD) Af Amer 135 Est GFR (MDRD) Non-Af 111 BUN/Creatinine Ratio 10.0 Glucose 179 H Calcium 9.2 POC Glucose 179 H Radiography Diagnostic Testing: Clinical Impression(s) from Imaging Studies Brain CT 11/27/22 11:32 IMPRESSION: 1. Hyperdensities of uncertain significance in the basilar artery as well as the middle cerebral artery branch of the right internal carotid artery. These findings can be associated with acute thromboemboli and, if clinically suspicious, further characterization with CT angiography advised. 2. No sign of acute infarct. No intracranial hemorrhage. Electronically Signed: Robin Blandon MD at 12:10 EDT Reading Location ID and State: [id number] / Unknown , Service support , Head/Neck CTA 11/27/22 11:32 IMPRESSION: 1. No acute extracranial or intracranial vascular occlusion. No intracranial hemorrhage. 2. 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 The right posterior cerebral artery branches primarily filled collateral fashion via a widely patent posterior to indicating artery. 3. Numerous nonspecific, borderline to mildly enlarged bilateral cervical lymph nodes present, including a dominant 3.3 cm left level II cervical node. One might consider follow-up neck ultrasound in 3-6 months to document stability or involution. Electronically Signed: Robin Blandon MD at 12:59 EDT [place] Location ID and State: [id number] / Unknown , Service support , Discharge Plan Triage Chief Complaint: Neuro S/Sx ED Provider: Josh Toledo Dx/Rx/DC Orders Clinical Impression: Mejias's palsy, Enlarged lymph node in neck, Neck pain Instructions: Lymphadenopathy, ED Emjias's Palsy, ED Pain, Acute, Uncertain Cause Prescriptions: New prednisone 50 mg tablet 50 mg PO DAILY 5 Days Qty: 5 0RF acyclovir 400 mg tablet 1 tab PO 5X/DAY 10 Days Qty: 50 0RF No Action insulin glargine [Lantus U-100 Insulin] 100 unit/mL Solution 19 unit SUBCUT BID Trulicity 0.75 mg/0.5 mL Pen Injector 0.75 mg SUBCUT QWEEK pioglitazone 30 mg tablet 30 mg PO DAILY Patient Comments: TAKE 1 TABLET BY MOUTH EVERY DAY Primary Care Provider: Cm Hand Referrals: Cm Hand DO [Primary Care Provider] - 3-5 Days Activity Restrictions/Additional Instructions: Take all medications as directed. Follow-up with neurology as needed. Use eye ointment or artificial tears while awake to prevent your left eye from drying out. Disposition Disposition: Home, Self Care
[2022-11-27 11:44] LABS: Absolute Lymphocyte Count 2.84 X10^3/uL (0.83-4.51); Absolute Neutrophil Count 9.1 X10^3/uL (2.0-7.7); Basophil% 0.7 % (0-1); Bedside Glucose 179 mg/dL (74-106); Eosinophil# 0.38 X10^3/uL; Eosinophils% 2.8 % (0-5); Hematocrit 51.3 % (40-54); Lymphocyte # 2.84 X10^3/ul (0.83-4.51); Mean Corp Hgb Conc 33.1 g/dL (32-36); Mean Corpuscular Hgb 27.9 pg (27.0-32.0); Mean Corpuscular Volume 84.1 fL (80-94); Mean Platelet Vol. 9.7 fl (6.2-12.0); Monocyte# 1.07 X10^3/uL; Monocyte% 7.9 % (0-10); NRBC Flagged by Analyzer 0 % (0-5); Neutrophil % 67.2 % (47-70); Platelet Count 318 K/mm3 (150-450); RBC Distribution Width CV 13.6 % (11.6-14.6); RBC Distribution Width SD 41.5 fl (35.1-43.9); White Blood Count 13.5 K/mm3 (4.4-11.0)
[2022-11-27 11:57] LABS: Anion Gap 5 (5-15); BUN 8 mg/dL (7-18); Calcium,Total 9.2 mg/dL (8.5-10.1); Chloride 102 mmol/L (98-107); EST Glomerular Filtration Rate 111 mL/min (>60); Est Glom Filt Rate - Afr Amer 135 mL/min (>60); Estimated Creatinine Clearance 117.83 ml/min; Glucose 179 mg/dL (74-106); Potassium 3.8 mmol/L (3.5-5.1); Sodium Level 139 mmol/L (136-145)
[2022-11-27 13:15] VITALS: BP 145/86; PULSE 73; RESP 18; O2SAT 93
[2022-11-27 13:50] VITALS: BP 139/90; PULSE 78; RESP 17; O2SAT 95
== END 2022-11-27 14:04 | disposition home or self-care (01) ==
PROVIDERS: Emergency Provider Emergency Medicine; PCP Preventive Medicine Occupational Medicine; Visit Provider Emergency Medicine
DX: G51.0 Bell's palsy (principal); I69.352 Hemiplegia and hemiparesis following cerebral infarction affecting left dominant side; E11.9 Type 2 diabetes mellitus without complications; Z79.4 Long term (current) use of insulin; M54.2 Cervicalgia; I10 Essential (primary) hypertension; F17.210 Nicotine dependence, cigarettes, uncomplicated; Z79.85 Long-term (current) use of injectable non-insulin antidiabetic drugs; R59.9 Enlarged lymph nodes, unspecified
CPT/HCPCS: 70450; 70496; 70498; 80048; 82962; 85025; 93005; 96360; 99284; J7040; Q9967; A4216

== ENCOUNTER 2023-09-21 22:13 | Observation (INO) | payer MEDICAID, SELFPAY ==
[2023-09-21 22:14] VITALS: BP 162/139; PULSE 104; RESP 18; TEMP 35.8; O2SAT 94; BMI 43.9
--- NOTE | 2023-09-21 22:22 | ED.VIS.DYS ---
HPI History of Present Illness Chief Complaint: Shortness of Breath Informant: patient Onset/Context/Timing Onset: Weeks (1) Context: gradual Timing: Intermittent Quality: Positive for Orthopnea Worsened by: Lying flat Relieved by: Nothing Associated Symptoms subjective and chills; Negative for cough, rhinorrhea, post nasal drip, ear pain, fever, sore throat, sweats, clear sputum, white sputum, yellow sputum or green sputum Chest Pain: Positive for None Narrative Narrative: Patient presents with shortness of breath that has been getting worse over the last week. Patient states that he feels bloated and he is having difficulty breathing whenever he lays down. Patient states he not been able to sleep much over the last week. Patient states he has had to sleep in a recliner. Patient admits to some subjective chills but denies any fevers. Patient denies any cough or sore throat. Patient denies any chest pain. Patient states his symptoms have been intermittent over the past week. [facility] Medical History Asthma Diabetes Hx of completed stroke Hypertension Hypertensive urgency JARAD (obstructive sleep apnea) Home Medications dulaglutide 0.75 mg/0.5 mL subcutaneous pen injector (Trulicity) 0.75 mg subcut QWEEK DM 07/09/22 [History Last Taken 07/05/22] insulin glargine 100 unit/mL subcutaneous solution (Lantus U-100 Insulin) 19 unit subcut BID DM 07/09/22 [History Last Taken 07/08/22] acyclovir 400 mg tablet 1 tab PO 5X/DAY 10 days #50 tabs 11/27/22 [Rx Last Taken Unknown] pioglitazone 30 mg tablet 30 mg PO DAILY 11/27/22 [History Last Taken Unknown] prednisone 50 mg tablet 50 mg PO DAILY 5 days #5 tabs 11/27/22 [Rx Last Taken Unknown] Allergy/AdvReac Type Severity Reaction Status Date / Time No Known Allergies Allergy Verified 09/21/23 22:14 Family History Other Heart disease Surgical History History of foot surgery Social History Smoking Status: Current every day smoker tobacco type: cigarettes substance use type: marijuana ROS ROS ED Constitutional Constitutional ED: Reports chills; Denies fever(s) Eyes Eyes: Denies blurry vision or change in vision ENT ENT ED: Denies rhinorrhea or sore throat Cardiovascular Cardiovascular: Denies chest pain or palpitations Respiratory/Chest Respiratory/Chest: Reports dyspnea; Denies cough Gastrointestinal Gastrointestinal: Denies nausea or vomiting Genitourinary Genitourinary ED: Denies dysuria or hematuria Musculoskeletal Musculoskeletal: Denies back pain or neck pain Integumentary Denies abscess or rash Neurologic Neurologic: Denies headache(s) or weakness Allergic/Immunologic Allergic/Immunologic ED: Denies mouth swelling or urticaria EXAM Physical Exam Const Vital Signs: 09/21/23 22:14 09/21/23 23:30 09/22/23 00:13 Temperature 96.4 F L Temperature Source Temporal Pulse Rate 104 H 88 Respiratory Rate 18 22 H Respiratory Effort Short of Breath Blood Pressure 162/139 H 161/123 H Blood Pressure Mean 146 135 Pulse Ox 94 94 Oxygen Delivery Method Room Air Room Air Room Air 09/22/23 02:00 09/22/23 03:13 Temperature Temperature Source Pulse Rate 84 90 Respiratory Rate 20 H Respiratory Effort Blood Pressure 227/132 H 218/135 H Blood Pressure Mean 163 Pulse Ox 95 Oxygen Delivery Method Positive well nourished and well developed General Appearance ED: well developed HEENT Reports moist mucous membranes Neck supple and no meningeal signs Resp normal respiratory effort and clear to auscultation bilaterally Cardio regular rate and regular rhythm GI non-tender Palpation: soft Extremity General Extremety ED: Yes edema; Negative for tenderness General Extremity: edema Neuro oriented x3, CN's II-XII intact bilaterally and no sensory deficits noted Lewis Coma Scale: document GCS findings Spontaneous Obeys Commands Oriented 15 Sensorium / Orientation: alert Speech: speech normal Motor Exam: strength 5/5 throughout Psych mental status grossly normal MDM MDM MDM Narrative Medical decision making narrative: Differential diagnosis includes congestive heart failure, pneumonia, pneumothorax, viral illness, pulmonary embolism, bowel obstruction, cardiac dysrhythmia, cardiac ischemia, and electrolyte abnormality. EKG will be obtained to assess for cardiac dysrhythmia and cardiac ischemia. Chest x-ray will be obtained to assess for pneumonia and congestive heart failure. CBC will be obtained to assess for leukocytosis and anemia. Basic metabolic profile will be obtained to assess for electrolyte abnormality and renal function. BNP will be obtained to assess for congestive heart failure. D-dimer will be obtained to assess for pulmonary embolism. History & Record Review Additional record(s) reviewed:: Prior labs Lab Data Attestation: I reviewed the patient's lab results. Lab results narrative: CBC was reviewed and was essentially within normal limits. Basic metabolic profile was reviewed and was within normal limits. D-dimer was reviewed and was elevated at 1.59. Initial troponin was reviewed and was slightly elevated at 88. 2-hour repeat high-sensitivity troponin was reviewed and was normal at 77. Urinalysis was reviewed. There is no evidence of urinary tract infection or hematuria. COVID-19 PCR was reviewed and was negative. Influenza PCR was reviewed and was negative for influenza A and influenza B. RSV PCR was reviewed and was negative. Labs: Laboratory Results - last 24 hr 09/21/23 09/22/23 09/22/23 23:23 00:30 02:05 WBC 10.6 RBC 5.62 Hgb 14.8 Hct 46.9 MCV 83.5 MCH 26.3 L MCHC 31.6 L RDW Std Deviation 44.2 H RDW Coeff of Jono 14.7 H Plt Count 276 MPV 9.4 Immature Gran % (Auto) 0.300 Neut % (Auto) 66.8 Lymph % (Auto) 21.0 [place] % (Auto) 9.6 Eos % (Auto) 1.6 Baso % (Auto) 0.7 Absolute Neuts (auto) 7.1 Absolute Lymphs (auto) 2.23 Nucleated RBC % 0 D-Dimer Quant (PE/DVT) 1.59 H* Sodium 142 Potassium 3.6 Chloride 108 H Carbon Dioxide 29.0 Anion Gap 5 BUN 13 Creatinine 0.91 Estim Creat Clear Calc 139.74 Est GFR (MDRD) Af Amer 116 Est GFR (MDRD) Non-Af 96 BUN/Creatinine Ratio 14.3 Glucose 100 Calcium 8.8 Troponin I High Sens 88 H 77 Urine Color Yellow Urine Clarity Clear Urine pH 6.5 Ur Specific [place] 1.015 Urine Protein 100 H Urine Glucose (UA) Normal Urine Ketones Negative Urine Occult Blood 25 H Urine Nitrite Negative Urine Bilirubin Negative Urine Urobilinogen 1 H Ur Leukocyte Esterase Negative Urine RBC 0 SEEN Urine WBC 0 SEEN Ur Squamous Epith Cells 0 SEEN Urine Bacteria 0 SEEN Urine Mucus 0 SEEN Radiography CTA PE Study: No Evidence of PE and No Evidence of Dissection Diagnostic Testing: Clinical Impression(s) from Imaging Studies Chest CTA 09/22/23 23:54 IMPRESSION: 1. Moderate cardiomegaly. Coronary artery calcifications. 2. Small right pleural effusion with right basilar atelectasis. 3. Mild interstitial pulmonary edema. 4. Small amount of perihepatic ascites in the upper abdomen. Electronically Signed: Rodriguez Sánchez MD at 1:13 EDT , CTA of the chest was obtained. There is moderate cardiomegaly. There is mild interstitial pulmonary edema. There is a small amount of perihepatic ascites in the upper abdomen. There is a small right pleural effusion with right basilar atelectasis. There is no evidence of pulmonary embolism or aortic dissection. This was interpreted by the radiologist and was also independently reviewed by myself. EKG Initial EKG: Attestation: I personally reviewed and interpreted this EKG as follows: Interpretation: Sinus Rhythm (99) and Non-Specific ST Changes Comments: EKG was obtained. On my independent interpretation, shows normal sinus rhythm with a rate of 99. VA interval was normal at 182 ms. QRS interval was normal at 102 ms. QTc interval was normal at 495 ms. There is borderline left axis deviation at -14. There are nonspecific ST-T wave changes noted. Prior EKG tracings: available for review Prior: Unchanged (11/27/2022) Management Discussion w/another healthcare provider: Hospitalist Treatment and Re-Evaluation :: Patient was advised of his findings. Patient was given a dose of Lasix here. Patient was placed on nitroglycerin paste. Patient blood pressure improved to 177/110. Patient was advised of the need for hospitalization. Patient is agreeable with this. Case was discussed with the hospitalist. He recommended adding a urine tox screen. This was ordered. He will admit the patient to his service. Patient understood and was agreeable with the plan. All questions were answered. Discharge Plan Triage Chief Complaint: Shortness of Breath ED Provider: Tristan Hensley Dx/Rx/DC Orders Clinical Impression: CHF (congestive heart failure), Diabetes, Hypertension Prescriptions: No Action insulin glargine [Lantus U-100 Insulin] 100 unit/mL Solution 19 unit SUBCUT BID Trulicity 0.75 mg/0.5 mL Pen Injector 0.75 mg SUBCUT QWEEK pioglitazone 30 mg tablet 30 mg PO DAILY Patient Comments: TAKE 1 TABLET BY MOUTH EVERY DAY prednisone 50 mg tablet 50 mg PO DAILY 5 Days Qty: 5 0RF acyclovir 400 mg tablet 1 tab PO 5X/DAY 10 Days Qty: 50 0RF Primary Care Provider: Cm Hand Referrals: Cm Hand DO [Primary Care Provider] - 5-7 Days Disposition Disposition: Acute Care Hospital
[2023-09-21 23:30] VITALS: O2SAT 95
[2023-09-21 23:34] LABS: Absolute Lymphocyte Count 2.23 X10^3/uL (0.83-4.51); Absolute Neutrophil Count 7.1 X10^3/uL (2.0-7.7); Basophil# 0.07 X10^3/uL; Basophil% 0.7 % (0-1); Eosinophil# 0.17 X10^3/uL; Eosinophils% 1.6 % (0-5); Hematocrit 46.9 % (40-54); Hemoglobin 14.8 g/dL (13.0-16.5); Lymphocyte # 2.23 X10^3/ul (0.83-4.51); Mean Corp Hgb Conc 31.6 g/dL (32-36); Mean Corpuscular Hgb 26.3 pg (27.0-32.0); Mean Corpuscular Volume 83.5 fL (80-94); Mean Platelet Vol. 9.4 fl (6.2-12.0); Monocyte# 1.02 X10^3/uL; Monocyte% 9.6 % (0-10); NRBC Flagged by Analyzer 0 % (0-5); Neutrophil # 7.12 X10^3/uL (2.7-7.7); Neutrophil % 66.8 % (47-70); Platelet Count 276 K/mm3 (150-450); RBC Distribution Width CV 14.7 % (11.6-14.6); RBC Distribution Width SD 44.2 fl (35.1-43.9); Red Blood Count 5.62 M/mm3 (4.6-6.2); White Blood Count 10.6 K/mm3 (4.4-11.0)
[2023-09-21 23:51] LABS: D-Dimer Quantitative (DVT/PE) 1.59 FEU/ug/m (0.27-0.49)
[2023-09-21 23:52] LABS: Anion Gap 5 (5-15); BUN 13 mg/dL (7-18); BUN/Creat Ratio 14.3 RATIO (10-20); Calcium,Total 8.8 mg/dL (8.5-10.1); Chloride 108 mmol/L (98-107); Creatinine, Serum 0.91 mg/dL (0.70-1.30); EST Glomerular Filtration Rate 96 mL/min (>60); Est Glom Filt Rate - Afr Amer 116 mL/min (>60); Estimated Creatinine Clearance 139.74 ml/min; Glucose 100 mg/dL (74-106); Potassium 3.6 mmol/L (3.5-5.1); Sodium Level 142 mmol/L (136-145); Troponin-I HS 88 pg/mL (3.0-78.0)
[2023-09-22] VITALS (13 sets, daily range): BP systolic 135–227; BP diastolic 71–135; PULSE 84–90; RESP 16–22; TEMP 36.3–36.9; O2SAT 94–98; BMI 42.5
[2023-09-22 00:53] LABS: Bacteria 0 SEEN /hpf (None Seen); Color, Urine Yellow (Yellow); Glucose, Dipstick Normal (Normal); Ketone-Dipstick Negative (Negative); Leukocyte Esterase-Dipstick Negative /ul (Negative); Mucous, Urine 0 SEEN /hpf (<or=2+); Nitrite-Dipstick Negative (Negative); Occult Blood-Urine 25 /ul (Negative); Protein-Dipstick 100 mg/dl (Negative); Red Blood Cells-Urine 0 SEEN /hpf (0-5); Specific Gravity, Urine 1.015 (1.002-1.030); Squamous Epithelial Cells - UA 0 SEEN /hpf (0-5); Urine Bilirubin Dipstick Negative (Negative); Urine Clarity Clear (Clear); Urine Urobilinogen 1 mg/dl (Normal); Urine pH 6.5 (5.0 - 8.0); White Blood Cells 0 SEEN /hpf (0-5)
[2023-09-22 02:28] LABS: Troponin-I HS 77 pg/mL (3.0-78.0)
[2023-09-22] MEDS: Furosemide 40 MG/4 ML Vial IV ×3 (03:13→17:04)
[2023-09-22] MEDS: Nitroglycerin Oint 1 INCH PACKET TD (03:13)
--- NOTE | 2023-09-22 03:42 | PCM.HP.STD ---
[facility] - General General Date of Admission: 09/22/23 Date of Service: 09/22/23 Chief Complaint: SOB. [facility] Narrative CELY ANN, is a 43 M with a past medical history of essential hypertension, tobacco abuse, cannabis abuse, morbid obesity; with BMI of 43.9 this admission, JARAD, Asthma, DM-2; of unknown control, history of CVA; with residual numbness and tingling of his Left arm and leg, history of Right-sided Mejias's palsy (2022), history of Left foot surgery after fracture to repair torn ligaments, history of medical noncompliance and history of hypertensive urgency and congestive heart failure; with preserved left ventricular ejection fraction of 53% (06/2022) who presents to [facility] ER complaining of shortness of breath. Mr. Mitchell reports his symptoms began approximately 1 week prior to admission with a gradual-onset of dyspnea on exertion that was initially intermittent but then progressed to shortness of breath at rest over the past 24 hours. He states that he feels bloated and is having difficulty breathing that is made worse by lying down flat so he has not been able to sleep very much over the past week and when he does so it is in a recliner. He also admits to subjective chills but denies fever, cough, sore throat, chest pain, chest pressure, palpitations or diaphoresis. He admits his symptoms are similar to his previous acute exacerbation of chronic diastolic CHF; with preserved LVEF with a coinciding hypertensive urgency treated here in June 2022. In the ER he was noted to have radiographic evidence of pulmonary vascular congestion with moderate cardiomegaly and a small Right pleural effusion with a small amount of perihepatic ascites in the upper abdomen consistent with suspected acute exacerbation of chronic diastolic CHF; with preserved LVEF and moderate concentric LVH complicated by a highly elevated blood pressure of 218/135 mmHg present on admission consistent with hypertensive urgency compounded by elevated D-dimer of 1.59 present on admission with a CTA of the chest negative for PE. BNP lab test was not available at this time due to machine being not operational at this time. He was then admitted to the PCU for ongoing care for stay is expected to be greater than 2 midnights. [facility] Medical History (Updated 09/22/23 @ 05:[address] Rudolph Yarbrough DO) Asthma Diabetes Hx of completed stroke Hypertension Hypertensive urgency JARAD (obstructive sleep apnea) Home Medications dulaglutide 0.75 mg/0.5 mL subcutaneous pen injector (Trulicity) 0.75 mg subcut QWEEK DM 07/09/22 [History Last Taken 07/05/22] insulin glargine 100 unit/mL subcutaneous solution (Lantus U-100 Insulin) 30 unit subcut BID DM 07/09/22 [History Last Taken 07/08/22] losartan 100 mg tablet 100 mg PO DAILY 09/22/23 [History Last Taken Unknown] Allergy/AdvReac Type Severity Reaction Status Date / Time No Known Allergies Allergy Verified 09/21/23 22:14 Family History Other Heart disease Surgical History History of foot surgery Social History Smoking Status: Current every day smoker tobacco type: cigarettes substance use type: marijuana ROS ROS Narrative Review of systems: General: Patient admits chills but denies fever HENT: Denies headache, denies stuffy nose, denies sore throat EYES: Denies changes in vision or discharge from eyes. Resp: Patient admits to dyspnea on exertion that progressed to shortness of breath at rest with generalized edema as per HPI. He denies cough. Cardiac: Denies chest pain, palpitations, heart racing or diaphoresis. GI: Denies abdominal pain, denies changes in bowel, denies nausea or vomiting. : Denies changes in urination Extremity: Denies swelling Musculoskeletal: Feels somewhat generally weak and unwell but denies arthralgias or myalgias. Neuro: Denies headache, paresthesias or focal neurologic weakness. Heme: Denies any bleeding or bruising Skin: Denies rashes Psychiatric: No complaints voiced related uncontrolled depression or anxiety. Endocrine: No polyuria, polydipsia or polyphagia. The rest of the 14 point ROS was negative except for positives in HPI. Vital Signs Vital Signs Vital Signs: 09/21/23 22:14 09/21/23 23:30 09/22/23 00:13 Temperature 96.4 F L Temperature Source Temporal Pulse Rate 104 H 88 Respiratory Rate 18 22 H Respiratory Effort Short of Breath Blood Pressure 162/139 H 161/123 H Blood Pressure Mean 146 135 Pulse Ox 94 94 Oxygen Delivery Method Room Air Room Air Room Air 09/22/23 02:00 09/22/23 03:13 Temperature Temperature Source Pulse Rate 84 90 Respiratory Rate 20 H Respiratory Effort Blood Pressure 227/132 H 218/135 H Blood Pressure Mean 163 Pulse Ox 95 Oxygen Delivery Method Weight Weight: 297 lb 6.4 oz Body Mass Index (BMI) 43.9 Physical Exam Const alert, oriented x3, no apparent distress and average body habitus Constitutional Narrative: Patient is morbidly obese and appears moderately ill with dyspnea at rest. General Appearance: cooperative HEENT normocephalic, head/scalp atraumatic, hearing grossly normal bilaterally and moist oral mucous membranes Eyes PERRL and EOMs intact bilaterally Neck no lymphadenopathy and supple Resp Resp Narrative: Diminished breath sounds throughout. Cardio regular rate and regular rhythm GI normal to inspection, nondistended, normoactive bowel sounds, soft to palpation, non-tender and non-distended GI Narrative: Morbidly obese. Extremity Extremity Narrative: 2-3+ bilateral lower extremity pitting edema noted. Skin Skin Narrative: Patient has no evidence of jaundice or rash. Neuro oriented x3, CN's II-XII intact bilaterally, moves all extremities and no focal motor deficits Sensorium / Orientation: awake, alert, oriented to person, oriented to place and oriented to time Speech: speech normal Psych affect normal Results Medical Records Data Attestation: I reviewed the patient's medical records Lab / Micro Data Attestation: I reviewed the patient's lab results. 09/21/23 23:23 09/21/23 23:23 Labs: Laboratory Results - last 24 hr 09/21/23 23:23: WBC 10.6, RBC 5.62, Hgb 14.8, Hct 46.9, MCV 83.5, MCH 26.3 L, MCHC 31.6 L, RDW Std Deviation 44.2 H, RDW Coeff of Jono 14.7 H, Plt Count 276, MPV 9.4, Immature Gran % (Auto) 0.300, Neut % (Auto) 66.8, Lymph % (Auto) 21.0, Desha % (Auto) 9.6, Eos % (Auto) 1.6, Baso % (Auto) 0.7, Absolute Neuts (auto) 7.1, Absolute Lymphs (auto) 2.23, Nucleated RBC % 0, D-Dimer Quant (PE/DVT) 1.59 H*, Sodium 142, Potassium 3.6, Chloride 108 H, Carbon Dioxide 29.0, Anion Gap 5, BUN 13, Creatinine 0.91, Estim Creat Clear Calc 139.74, Est GFR (MDRD) Af Amer 116, Est GFR (MDRD) Non-Af 96, BUN/Creatinine Ratio 14.3, Glucose 100, Calcium 8.8, Troponin I High Sens 88 H 09/22/23 00:30: Urine Color Yellow, Urine Clarity Clear, Urine pH 6.5, Ur Specific [place] 1.015, Urine Protein 100 H, Urine Glucose (UA) Normal, Urine Ketones Negative, Urine Occult Blood 25 H, Urine Nitrite Negative, Urine Bilirubin Negative, Urine Urobilinogen 1 H, Ur Leukocyte Esterase Negative, Urine RBC 0 SEEN, Urine WBC 0 SEEN, Ur Squamous Epith Cells 0 SEEN, Urine Bacteria 0 SEEN, Urine Mucus 0 SEEN 09/22/23 02:05: Troponin I High Sens 77 Micro: Microbiology 09/21/23 23:25 Mucosa - Nose SARS-CoV-2, Influenza & RSV (PCR) - Final Imaging Radiology Impression Chest CTA 09/22/23 23:54 IMPRESSION: 1. Moderate cardiomegaly. Coronary artery calcifications. 2. Small right pleural effusion with right basilar atelectasis. 3. Mild interstitial pulmonary edema. 4. Small amount of perihepatic ascites in the upper abdomen. Electronically Signed: Rodriguez Sánchez MD at 1:13 EDT , Assessment & Plan Assessment/Plan (1) Hypertensive urgency: (2) CHF (congestive heart failure): QUALIFIERS: Heart failure type: diastolic Heart failure chronicity: acute on chronic Qualified Code(s): I50.33 - Acute on chronic diastolic (congestive) heart failure (3) Respiratory insufficiency: (4) D-dimer, elevated: (5) Morbid obesity with BMI of 40.0-44.9, adult: PLAN: Plan 1. Acute exacerbation of chronic diastolic CHF; with preserved LVEF and moderate concentric LVH in the setting of previous admission here for the same in June 2022 - Admit to PCU. Continue IV Lasix plus give supplemental potassium and magnesium. Check echocardiogram to evaluate LVEF. Serialize troponin. 2. Hypertensive urgency; evidenced by elevated blood pressure of 218/135 mmHg present on admission complicating #1 - Continue home medications as previous plus give as needed IV hydralazine for systolic blood pressure greater than 160 mmHg. Check urine drug screen to evaluate for possible stimulant use. 3. Elevated D-dimer of 1.59 present on admission with respiratory insufficiency/SOB at rest and bilateral lower extremity edema compounding #1 & #2 - Give empiric full dose Lovenox and check bilateral lower extremity Dopplers to evaluate for possible DVT. CTA of chest negative for PE on admission. Wean supplemental oxygen as tolerated. 4. History of tobacco abuse, cannabis abuse and medical noncompliance adding to the pathology of #1 - #3 - Tobacco cessation will be strongly encouraged with nicotine patch offered to control cravings. Cannabis cessation will be strongly encouraged. Patient also encouraged to take his medications as prescribed to prevent potential pattern of increasingly frequent serial readmission. 5. Morbid obesity; with BMI of 43.9 this admission plus JARAD - Weight loss will be recommended. Check TSH in light of all the above. Resume nocturnal CPAP. 6. DM-2; of unknown control - ADA/cardiac diet. Fingerstick blood sugars q. AC/HS plus lowest intensity sliding scale insulin. Check hemoglobin A1c to objectively evaluate quality of diabetic control. 7. History of CVA; with residual numbness and tingling of his Left arm and leg - Noted. 8. History of Right-sided Mejias's palsy (2022) - Noted. 9. History of asthma - Stable and without evidence of acute flare at this time. Continue as needed nebulizers. 10. History of Left foot surgery after fracture to repair torn ligaments - Noted. 11. DVT prophylaxis - Patient was started on full-dose Lovenox with elevated D-dimer of 1.59 present on admission along with lower extremity edema. If Doppler is negative for DVT dose should be cut back to 40 mg sq twice daily. Total time: Approximately 75 minutes. Charges/Coding Visit Charges Inpatient E&M: 49049 Init Hosp L3
[2023-09-22 04:15] LABS: Amphetamine Urine VISTA NEGATIVE (<1000 ng/mL); Barbiturate Urine VISTA NEGATIVE (< 200 ng/mL); Benzodiazepine Urine VISTA NEGATIVE (< 200 ng/mL); Cocaine Urine VISTA NEGATIVE (< 300 ng/mL); Ecstacy Urine VISTA NEGATIVE (< 500 ng/mL); Methadone Urine VISTA NEGATIVE (< 300 ng/mL); PCP Urine VISTA NEGATIVE (< 25 ng/mL); THC Urine VISTA POSITIVE (< 50 ng/mL); Vista UDS pH Range 6
--- NOTE | 2023-09-22 04:38 | ECHOCS_ITS ---
Reason For Study: CHF Procedure This was a 2D Doppler, Color Flow transthoracic echocardiogram. The study was technically difficult. Contrast injection was performed. Exam performed portable in patient room. Left Ventricle Normal LV size. Moderate concentric left ventricular hypertrophy. The estimated ejection fraction is 30 %. Moderately severe global left ventricular systolic dysfunction. Stage 3 diastolic dysfunction. Right Ventricle Mildly dilated right ventricle. Moderately decreased right ventricular systolic function. Atria There is moderate biatrial dilatation. Mitral Valve The mitral valve is structurally normal. No prolapse or stenosis seen. Mild (1+) mitral valve insufficiency. Tricuspid Valve Normal tricuspid valve. Mild (1+) tricuspid valve insufficiency. Pulmonary artery systolic pressure is 43 mmHg. Aortic Valve Trisinus/trileaflet aortic valve. Pulmonic Valve The pulmonic valve is not well visualized. Great Vessels Normal aortic root. Pericardium/Pleural No pericardial effusion. Medication Diluted definity 2ml given slow IV push to enhance endocardial definition. MMode/2D Measurements & Calculations LVIDd: 5.4 cm IVSd: 1.4 cm Ao root diam: 3.7 cm LVIDs: 4.8 cm LVPWd: 1.5 cm RVDd: 4.4 cm FS: 10.9 % LAV(MOD-bp): 103.9 ml LA A4 area: 29.6 cm2 LA dimension(2D): 4.5 cm LAV(MOD-bp) Indexed: 43.1 ml/m2 LAV(MOD-sp2): 89.2 ml LAV(MOD-sp4): 109.6 ml TAPSE: 2.0 cm RA A4 area: 28.5 cm2 Time Measurements MV dec time: 0.10 sec Doppler Measurements & Calculations MV E max terry: 92.9 cm/sec Lat Peak E' Terry: 5.4 cm/sec Med Peak E' Terry: 6.0 cm/sec MV A max terry: 36.2 cm/sec E/E' lat: 17.1 E/E' med: 15.6 MV E/A: 2.6 MV V2 max: 100.9 cm/sec MV dec slope: 1377 cm/sec2 Ao V2 max: 128.7 cm/sec MV max P.1 mmHg Ao max P.6 mmHg MV V2 mean: 52.4 cm/sec Ao V2 mean: 88.4 cm/sec MV mean P.4 mmHg Ao mean P.6 mmHg MV V2 VTI: 25.5 cm Ao V2 VTI: 22.2 cm AV (velocity ratio): 0.66 LV V1 max: 79.9 cm/sec PA V2 max: 82.7 cm/sec TR max terry: 266.6 cm/sec LV V1 max P.7 mmHg PA V2 mean: 54.9 cm/sec TR max P.4 mmHg LV V1 mean P.5 mmHg LV V1 mean: 55.9 cm/sec LV V1 VTI: 14.7 cm ECHO/Echo Complete W/ Contrast Interpretation Summary The estimated ejection fraction is 30 %. Severe LV global systolic dysfunction. Stage 3 diastolic dysfunction. Mildly dilated right ventricle with moderate RV systolic dysfunction. There is moderate biatrial dilatation. Mild (1+) mitral valve insufficiency. Pulmonary artery systolic pressure is 43 mmHg. The study was technically difficult. Ordering Physician: Rudolph Yarbrough Referring Physician: YARIEL OROZCO Performed By: Karishma Bailon RCS
--- NOTE | 2023-09-22 04:38 | VDLE_ITS ---
Reason For Study: Elevated D-dimer RIGHT LEFT GSV is normal. GSV is normal. CFV is compressible, spontaneous, phasic, CFV is compressible, spontaneous, phasic, competent and demonstrates normal competent, and demonstrates normal augmentation. augmentation. FV is compressible, spontaneous, phasic, FV is compressible, spontaneous, phasic, competent and demonstrates normal competent and demonstrates normal augmentation. augmentation. POP V is compressible, spontaneous, phasic, POP V is compressible, spontaneous, phasic, competent and demonstrates normal competent and demonstrates normal augmentation. augmentation. T/P Trunk is compressible. T/P Trunk is compressible. PTV is compressible. PTV is compressible. RT PerV is compressible. LT PerV is compressible. Procedure This is a venous duplex using B-mode, color flow and spectral Doppler. Exam performed portable in patient room. A preliminary report was called and/or faxed to [facility]. VL/Venous Duplex US - Wilbur Extrem Interpretation Summary Deep veins of the bilateral lower extremities are patent and compressible segme ntally. There is no evidence of bilateral lower extremity deep vein thrombosis. The bilateral great saphenous veins appear patent and compressible segmentally. Ordering Physician: Rudolph Yarbrough Referring Physician: Cm Hand Performed By: Melida Mayorga RVT
[2023-09-22] MEDS: hydrALAZINE 20 MG/ML Vial 10 MG IV ×2 (05:14→21:42)
[2023-09-22] MEDS: Enoxaparin 150 MG/ML Syringe 135 MG SC ×2 (05:14→21:39)
[2023-09-22 06:27] LABS: Bedside Glucose 87 mg/dL (74-106)
[2023-09-22 06:52] LABS: Phosphorus 3.6 mg/dL (2.5-4.9); Thyroid Stim Hormone (TSH) 3.34 uIU/mL (0.358-3.74)
--- NOTE | 2023-09-22 08:29 | CPS ---
SMI and Pep held. Pt fell back to sleep
[2023-09-22 09:21] LABS: Hemoglobin A1c 6.4 % (3.8-5.6)
[2023-09-22] MEDS: Magnesium Chloride 64 MG Delay Rel.Tablet 128 MG PO (09:34)
[2023-09-22] MEDS: Losartan Potassium 100 MG Tablet PO (09:34)
[2023-09-22] MEDS: Potassium Chloride Oral Tablet 20 MEQ PO ×2 (09:34→17:04)
[2023-09-22] MEDS: 0.9% Saline Lock 10 ML Syringe IV ×2 (09:37→17:05)
[2023-09-22] MEDS: Insulin Glargine-YFGN 100 UNIT/ML Pen 25 UNIT SC ×2 (09:39→21:33)
--- NOTE | 2023-09-22 11:15 | CPS ---
SMI and pep therapy held at this time, pt was sleeping
[2023-09-22 11:28] LABS: Bedside Glucose 97 mg/dL (74-106)
[2023-09-22 16:26] LABS: Bedside Glucose 132 mg/dL (74-106)
[2023-09-22 21:53] LABS: Bedside Glucose 110 mg/dL (74-106)
[2023-09-22] MEDS: MELATONIN 3 MG TABLET PO (23:43)
--- NOTE | 2023-09-22 23:54 | CT_ITS ---
EXAM: CT ANGIOGRAPHY CHEST WITHOUT AND WITH INTRAVENOUS CONTRAST CLINICAL INDICATION: Elevated D-dimer TECHNIQUE: Helically acquired angiography images were obtained of the chest without and with intravenous contrast. This CT exam was performed using one or more of the following dose reduction techniques: automated exposure control, adjustment of the mA and/or kV according to patient size, and/or use of iterative reconstruction technique. MIP reconstructed images were created and reviewed. CONTRAST: IV 100mL [id number] COMPARISON: No relevant prior studies available. FINDINGS: PULMONARY ARTERIES: Unremarkable. Normal in caliber. No evidence of pulmonary embolism. AORTA: No dissection or other acute aortic abnormalities. GREAT VESSELS OF AORTIC ARCH: Unremarkable. Normal in caliber. No evidence of dissection. LUNGS AND PLEURAL SPACES: Small right pleural effusion with right basilar atelectasis. Mild interstitial pulmonary edema. No mass. No pneumothorax. HEART: Moderate cardiomegaly. Coronary artery calcifications. No pericardial effusion. MEDIASTINUM: Unremarkable. No mediastinal or hilar adenopathy. Esophagus is unremarkable. No hiatal hernia. THYROID: Unremarkable. No thyroid lesions. BONES/JOINTS: Degenerative changes of the spine. No suspicious lytic or blastic abnormality. INTRAPERITONEAL SPACE: Small amount of perihepatic ascites in the upper abdomen. CT/CTA Chest W/WO Contrast IMPRESSION: 1. Moderate cardiomegaly. Coronary artery calcifications. 2. Small right pleural effusion with right basilar atelectasis. 3. Mild interstitial pulmonary edema. 4. Small amount of perihepatic ascites in the upper abdomen. Electronically Signed: Rodriguez Sánchez MD at 1:13 EDT ,
[2023-09-23] VITALS (7 sets, daily range): BP systolic 139–175; BP diastolic 90–114; PULSE 71–80; RESP 16–18; TEMP 36.4–36.8; O2SAT 94–98; BMI 42.5
[2023-09-23] MEDS: hydrOXYzine 50 MG/ML Vial 100 MG IM (00:02)
[2023-09-23] MEDS: Enalaprilat 1.25 MG/ML Vial IV (00:03)
[2023-09-23 06:26] LABS: Bedside Glucose 83 mg/dL (74-106)
[2023-09-23 06:39] LABS: Absolute Lymphocyte Count 2.07 X10^3/uL (0.83-4.51); Absolute Neutrophil Count 4.8 X10^3/uL (2.0-7.7); Basophil# 0.08 X10^3/uL; Eosinophil# 0.23 X10^3/uL; Eosinophils% 2.8 % (0-5); Hemoglobin 14.4 g/dL (13.0-16.5); Lymphocyte # 2.07 X10^3/ul (0.83-4.51); Lymphocyte % 25.4 % (19-41); Mean Corp Hgb Conc 31.3 g/dL (32-36); Mean Corpuscular Volume 83.2 fL (80-94); Mean Platelet Vol. 10.2 fl (6.2-12.0); Monocyte# 0.94 X10^3/uL; Monocyte% 11.5 % (0-10); NRBC Flagged by Analyzer 0 % (0-5); Neutrophil # 4.81 X10^3/uL (2.7-7.7); Neutrophil % 59.1 % (47-70); Platelet Count 247 K/mm3 (150-450); RBC Distribution Width CV 14.8 % (11.6-14.6); RBC Distribution Width SD 44.8 fl (35.1-43.9); Red Blood Count 5.53 M/mm3 (4.6-6.2); White Blood Count 8.2 K/mm3 (4.4-11.0)
[2023-09-23 07:18] LABS: ALB/GLOB Ratio 0.8 RATIO (0.9-2.4); AST(SGOT) 44 U/L (15-37); Alanine Aminotransfer ALT/SGPT 25 U/L (16-61); Albumin, Serum 2.8 g/dL (3.2-5.0); Alkaline Phosphatase 71 U/L (45-117); Anion Gap 3 (5-15); BUN 12 mg/dL (7-18); BUN/Creat Ratio 14.6 RATIO (10-20); Chloride 106 mmol/L (98-107); Creatinine, Serum 0.82 mg/dL (0.70-1.30); EST Glomerular Filtration Rate 107 mL/min (>60); Est Glom Filt Rate - Afr Amer 130 mL/min (>60); Estimated Creatinine Clearance 152.44 ml/min; Globulin 3.5 g/dL (2.2-4.2); Glucose 78 mg/dL (74-106); Potassium 3.9 mmol/L (3.5-5.1); Protein, Total 6.3 g/dL (6.4-8.2); Sodium Level 139 mmol/L (136-145)
[2023-09-23] MEDS: Losartan Potassium 100 MG Tablet PO (10:30)
[2023-09-23] MEDS: Potassium Chloride Oral Tablet 20 MEQ PO ×2 (10:30→18:57)
[2023-09-23] MEDS: Furosemide 40 MG/4 ML Vial IV ×2 (10:30→18:58)
[2023-09-23] MEDS: Insulin Glargine-YFGN 100 UNIT/ML Pen 25 UNIT SC ×2 (10:30→23:42)
[2023-09-23] MEDS: Magnesium Chloride 64 MG Delay Rel.Tablet 128 MG PO (10:30)
--- NOTE | 2023-09-23 10:30 | CASEMGMT ---
RN CM Face to Face with patient for initial transition planning/care coordination assessment. RN CM introduced self and role at [facility]. Patient lying in bed, alert and oriented. Patient willing to participate in assessment and is able to answer all questions appropriately. Care providers, pharmacy, and demographics verified. PCP: [facility] Specialists: none Preferred Pharmacy: [facility] Insurance: [employer] Prescription Benefit: yes Living Will/HPOA: none LNOK: aunt Living Arrangements: Patient lives alone in a single story home with no steps to enter. Patient states she is independent at home. Transportation: self, aunt DME/HHC: Patient has grab bars and glucometer at home. No previous HHC or SNF Patient wishes to discharge home, denies need for home health at this time. Patient states he has no further needs or concerns at this time. CM to follow for discharge planning needs that may arise. Disposition Plan: Patient to discharge home with family support and follow up plans in place. Melida LOJA, RN, CM
[2023-09-23] MEDS: hydrALAZINE 20 MG/ML Vial 10 MG IV (10:41)
[2023-09-23 12:15] LABS: Bedside Glucose 106 mg/dL (74-106)
[2023-09-23 16:56] LABS: Bedside Glucose 93 mg/dL (74-106)
[2023-09-23] MEDS: amLODIPine 5 MG Tablet PO (19:00)
[2023-09-23] MEDS: Carvedilol 12.5 MG Tablet PO ×2 (19:00→23:39)
[2023-09-23] MEDS: 0.9% Saline Lock 10 ML Syringe IV (19:01)
[2023-09-23 19:17] LABS: BNP,B-Type NATRIURETIC PEPTIDE 415.5 pg/mL (0-100)
--- NOTE | 2023-09-23 19:20 | PCM.PN.HOSP ---
Reason for Visit Reason for Visit: Diagnoses Acute on chronic diastolic (congestive) heart failure (09/22/23) Subjective Subjective Patient was seen and examined today, he is currently on room air and appears comfortable. Patient states that his blood pressure is under control as an outpatient. His blood pressure today has been elevated however and I have added on a beta-jake and amlodipine to his medical regimen. His echocardiogram today showed a reduced ejection fraction at 30%, I told him that he would need to get this worked up as an outpatient-his last echocardiogram done last year showed a normal EF. Patient's lower extremity duplex scan was negative for VTE. Patient also had a negative CTA of the chest for PE. Objective Data Objective Data Vital Signs: Vital Signs Temp Pulse Resp BP Pulse Ox O2 Del Method 98.0 F 80 18 162/93 H 96 Room Air 09/23/23 16:00 09/23/23 16:00 09/23/23 16:00 09/23/23 16:00 09/23/23 16:00 09/23/23 16:00 Oxygen Delivery Method Room Air Weight: 130.8 kg Body Mass Index (BMI) 42.5 Intake & Output: Intake and Output for Last 24 Hours 09/21/23 09/22/23 09/23/23 23:59 23:59 23:59 Intake Total 840 / 1320 720 / 720 Output Total 2600 / 3800 1200 / 1200 Balance -1760 / -2480 -480 / -480 Lab / Micro Data 09/23/23 05:40 09/23/23 05:40 Labs: Laboratory Results - last 24 hr 09/21/23 23:23: B-Natriuretic Peptide 415.5 H 09/22/23 21:33: POC Glucose 110 H 09/23/23 05:40: WBC 8.2, RBC 5.53, Hgb 14.4, Hct 46.0, MCV 83.2, MCH 26.0 L, MCHC 31.3 L, RDW Std Deviation 44.8 H, RDW Coeff of Jono 14.8 H, Plt Count 247, MPV 10.2, Immature Gran % (Auto) 0.200, Neut % (Auto) 59.1, Lymph % (Auto) 25.4, [place] % (Auto) 11.5 H, Eos % (Auto) 2.8, Baso % (Auto) 1.0, Absolute Neuts (auto) 4.8, Absolute Lymphs (auto) 2.07, Nucleated RBC % 0, Sodium 139, Potassium 3.9, Chloride 106, Carbon Dioxide 30.0, Anion Gap 3 L, BUN 12, Creatinine 0.82, Estim Creat Clear Calc 152.44, Est GFR (MDRD) Af Amer 130, Est GFR (MDRD) Non-Af 107, BUN/Creatinine Ratio 14.6, Glucose 78, Calcium 9.0, Total Bilirubin 1.00, AST 44 H, ALT 25, Alkaline Phosphatase 71, Total Protein 6.3 L, Albumin 2.8 L, Globulin 3.5, Albumin/Globulin Ratio 0.8 L 09/23/23 06:07: POC Glucose 83 09/23/23 11:54: POC Glucose 106 09/23/23 16:38: POC Glucose 93 Micro: Microbiology 09/21/23 23:25 Mucosa - Nose SARS-CoV-2, Influenza & RSV (PCR) - Final Radiography Diagnostic Testing: Radiology Impression Echocardiogram 09/22/23 04:38 Interpretation Summary The estimated ejection fraction is 30 %. Severe LV global systolic dysfunction. Stage 3 diastolic dysfunction. Mildly dilated right ventricle with moderate RV systolic dysfunction. There is moderate biatrial dilatation. Mild (1+) mitral valve insufficiency. Pulmonary artery systolic pressure is 43 mmHg. The study was technically difficult. Ordering Physician: Rudolph Yarbrough Referring Physician: YARIEL HAND Performed By: Karishma Bailon RCS Venous Doppler Study 09/22/23 04:38 Interpretation Summary Deep veins of the bilateral lower extremities are patent and compressible segmentally. There is no evidence of bilateral lower extremity deep vein thrombosis. The bilateral great saphenous veins appear patent and compressible segmentally. Ordering Physician: Rudolph Yarbrough Referring Physician: Yariel Hand Performed By: Melida Mayorga, RVT Physical Exam Const alert, oriented x3, no apparent distress and healthy appearing Constitutional Narrative: Patient is morbidly obese General Appearance: cooperative, well kempt and well developed Orientation / Consciousness: awake, oriented to person, oriented to place and oriented to time HEENT normocephalic and moist oral mucous membranes Eyes PERRL, EOMs intact bilaterally and conjunctivae normal Neck supple, no JVD, thyroid normal and no carotid bruits General: trachea midline Resp normal respiratory effort, no retractions, no use of accessory muscles and clear to auscultation bilaterally Auscultation: Negative for rales, rhonchi or wheezes Cardio regular rate, regular rhythm, no murmurs, no rub and no gallops GI normal to inspection, nondistended, normoactive bowel sounds, soft to palpation, non-tender and non-distended Extremity no clubbing, cyanosis or edema Skin no rashes or lesions noted General Skin Exam: no breakdown Neuro oriented x3, CN's II-XII intact bilaterally, no focal motor deficits and no sensory deficits noted Sensorium / Orientation: awake and alert Speech: speech normal Psych affect normal Assessment & Plan Assessment/Plan (1) CHF (congestive heart failure): QUALIFIERS: Heart failure type: diastolic Heart failure chronicity: acute on chronic Qualified Code(s): I50.33 - Acute on chronic diastolic (congestive) heart failure PLAN: Plan 1. Acute systolic congestive heart failure-patient will remain on IV Lasix, again he was placed on a beta-jake today and he is already on losartan. Patient remains on room air at this time he will be reevaluated tomorrow, again he understands he will need a workup for his reduced EF as an outpatient-I suggest that he get a stress test done as an outpatient. #2 hypertensive emergency-due to the fact the patient had congestive heart failure, I feel that he had hypertensive emergency, blood pressure medications were adjusted #3 morbid obesity-complicates care, management, recovery, and prognosis #4 type 2 diabetes-blood sugars will be monitored, sliding scale insulin will be administered as needed #5 cardiomyopathy-etiology unclear, possibly secondary to hypertension-this will need further workup as an outpatient Total clinical time spent by myself addressing the patient's medical issues, reviewing all of his data, and collaborating with patient's care team: 50 minutes Charges/Coding Visit Charges Inpatient E&M: 66433 Subs Hosp L3
[2023-09-23] MEDS: MELATONIN 3 MG TABLET PO (23:39)
[2023-09-24 00:42] LABS: Bedside Glucose 107 mg/dL (74-106)
[2023-09-24 04:08] VITALS: BP 131/81; PULSE 69; RESP 16; TEMP 36.1; O2SAT 98
[2023-09-24 06:00] VITALS: BMI 42.4
[2023-09-24 06:59] LABS: Bedside Glucose 95 mg/dL (74-106)
[2023-09-24 07:21] VITALS: O2SAT 98
[2023-09-24] MEDS: Carvedilol 12.5 MG Tablet PO ×2 (09:49→21:38)
[2023-09-24] MEDS: Magnesium Chloride 64 MG Delay Rel.Tablet 128 MG PO (09:49)
[2023-09-24] MEDS: Potassium Chloride Oral Tablet 20 MEQ PO ×2 (09:49→18:00)
[2023-09-24] MEDS: Losartan Potassium 100 MG Tablet PO (09:49)
[2023-09-24] MEDS: Furosemide 40 MG/4 ML Vial IV ×2 (09:50→18:01)
[2023-09-24] MEDS: Insulin Glargine-YFGN 100 UNIT/ML Pen 25 UNIT SC ×2 (09:50→21:39)
[2023-09-24] MEDS: amLODIPine 5 MG Tablet PO ×2 (09:51→21:38)
[2023-09-24] MEDS: 0.9% Saline Lock 10 ML Syringe IV (09:58)
[2023-09-24 10:00] VITALS: BP 156/117; PULSE 80; RESP 18; TEMP 36.3; O2SAT 95
[2023-09-24 12:32] LABS: Bedside Glucose 121 mg/dL (74-106)
[2023-09-24 16:00] VITALS: BP 152/120; PULSE 77; RESP 16; TEMP 36.5; O2SAT 98
[2023-09-24 17:45] LABS: Bedside Glucose 92 mg/dL (74-106)
--- NOTE | 2023-09-24 20:26 | PCM.PN.HOSP ---
Reason for Visit Reason for Visit: Diagnoses Acute on chronic diastolic (congestive) heart failure (09/22/23) Subjective Subjective Patient was seen and examined today, I have elected to have the patient undergo a pharmacological stress test tomorrow due to his reduced ejection fraction, patient's blood pressure still not under adequate control, I increased his amlodipine. Objective Data Objective Data Vital Signs: Vital Signs Temp Pulse Resp BP Pulse Ox O2 Del Method 97.7 F L 77 16 152/120 H 98 Room Air 09/24/23 16:00 09/24/23 16:00 09/24/23 16:00 09/24/23 16:00 09/24/23 16:00 09/24/23 16:00 Oxygen Delivery Method Room Air Weight: 130.4 kg Body Mass Index (BMI) 42.4 Intake & Output: Intake and Output for Last 24 Hours 09/22/23 09/23/23 09/24/23 23:59 23:59 23:59 Intake Total 840 / 1320 720 / 720 Output Total 2600 / 3800 1200 / 1200 2100 / 2100 Balance -1760 / -2480 -480 / -480 -2100 / -2100 Lab / Micro Data 09/23/23 05:40 09/23/23 05:40 Labs: Laboratory Results - last 24 hr 09/23/23 23:35: POC Glucose 107 H 09/24/23 06:36: POC Glucose 95 09/24/23 12:14: POC Glucose 121 H 09/24/23 17:16: POC Glucose 92 Micro: Microbiology 09/21/23 23:25 Mucosa - Nose SARS-CoV-2, Influenza & RSV (PCR) - Final Physical Exam Narrative alert, oriented x3, no apparent distress and healthy appearing Constitutional Narrative: Patient is morbidly obese General Appearance: cooperative, well kempt and well developed Orientation / Consciousness: awake, oriented to person, oriented to place and oriented to time HEENT normocephalic and moist oral mucous membranes Eyes PERRL, EOMs intact bilaterally and conjunctivae normal Neck supple, no JVD, thyroid normal and no carotid bruits General: trachea midline Resp normal respiratory effort, no retractions, no use of accessory muscles and clear to auscultation bilaterally Auscultation: Negative for rales, rhonchi or wheezes Cardio regular rate, regular rhythm, no murmurs, no rub and no gallops GI normal to inspection, nondistended, normoactive bowel sounds, soft to palpation, non-tender and non-distended Extremity no clubbing, cyanosis or edema Skin no rashes or lesions noted General Skin Exam: no breakdown Neuro oriented x3, CN's II-XII intact bilaterally, no focal motor deficits and no sensory deficits noted Sensorium / Orientation: awake and alert Speech: speech normal Psych affect normal Assessment & Plan Assessment/Plan (1) Respiratory insufficiency: (2) CHF (congestive heart failure): QUALIFIERS: Heart failure type: diastolic Heart failure chronicity: acute on chronic Qualified Code(s): I50.33 - Acute on chronic diastolic (congestive) heart failure PLAN: Plan 1. Acute systolic congestive heart failure-patient's Lasix was changed to p.o. today #2 hypertensive emergency-due to the fact the patient had congestive heart failure, I feel that he had hypertensive emergency, blood pressure medications were adjusted, patient's Norvasc was increased #3 morbid obesity-complicates care, management, recovery, and prognosis #4 type 2 diabetes-blood sugars will be monitored, sliding scale insulin will be administered as needed #5 cardiomyopathy-etiology unclear, possibly secondary to hypertension-patient will undergo a resting nuclear pharmacological stress test tomorrow Total clinical time spent by myself addressing the patient's medical issues, reviewing all of his data, and collaborating with patient's care team: 35 minutes Charges/Coding Visit Charges Inpatient E&M: 36462 Subs Hosp L2
[2023-09-24 21:33] VITALS: BP 151/100; PULSE 80; RESP 18; TEMP 36.6; O2SAT 96
[2023-09-24] MEDS: MELATONIN 3 MG TABLET PO (21:37)
[2023-09-24 22:49] LABS: Bedside Glucose 85 mg/dL (74-106)
[2023-09-25 02:59] VITALS: BP 152/100; PULSE 69; RESP 16; TEMP 36.6; O2SAT 97
[2023-09-25] MEDS: LORazepam 0.5 MG Tablet PO (03:15)
[2023-09-25 04:19] LABS: Troponin-I HS 50 pg/mL (3.0-78.0)
[2023-09-25 06:00] VITALS: BMI 40.2
[2023-09-25 06:30] VITALS: BP 129/93; PULSE 70; RESP 20; TEMP 36.3; O2SAT 95
[2023-09-25] MEDS: Losartan Potassium 100 MG Tablet PO (06:33)
[2023-09-25 07:19] LABS: Bedside Glucose 87 mg/dL (74-106)
[2023-09-25 07:37] LABS: Troponin-I HS 44 pg/mL (3.0-78.0)
[2023-09-25 08:12] VITALS: O2SAT 97
[2023-09-25 08:13] LABS: Bedside Glucose 101 mg/dL (74-106)
[2023-09-25 11:54] LABS: Troponin-I HS 42 pg/mL (3.0-78.0)
[2023-09-25 11:54] LABS: Bedside Glucose 86 mg/dL (74-106)
[2023-09-25 12:30] VITALS: BP 133/80; PULSE 68; RESP 18; TEMP 36.4; O2SAT 97
--- NOTE | 2023-09-25 14:39 | STRESSREP ---
Stress Test Report Date: 09/25/2023 Procedure: Pharmacologic stress nuclear imaging study Indications: LV systolic dysfunction Consent: Per the patient Procedure: The patient underwent pharmacologic (Regadenoson 0.4mg ) evaluation with a peak heart rate of 86 beats per minute (49%predicted maximal heart rate) and a peak blood pressure of 148/100 mmHg. The baseline ECG demonstrated sinus rhythm with nonspecific ST changes in inferior leads. The peak pharmacologic ECG demonstrated no diagnostic ischemic changes. Occasional PVC noted at baseline and postinfusion. There was no complaint of chest discomfort during pharmacologic infusion or recovery. The patient was injected with 14.0 millicuries of technetium 99m Cardiolite and subsequently rest SPECT Cardiolite nuclear imaging was obtained in the horizontal long, vertical long, and short axis views. The patient underwent pharmacologic (Regadenoson) evaluation. The patient was injected with 45.0 millicuries of technetium 99m Cardiolite and subsequently stress SPECT Cardiolite nuclear imaging was obtained in the horizontal long, vertical long, and short axis views. A gated Cardiolite study at peak stress was obtained. The examination was stopped secondary to completion of protocol. Rest and stress SPECT Cardiolite nuclear imaging status post realignment, normalization, and attenuation correction demonstrate mildly reduced perfusion of apex which is fixed with no reversible component. Gated images revealed severe LV systolic dysfunction with LVEF of 20%. Dilated left ventricle. Impression: 1. Pharmacologic (Regadenoson) evaluation 2. Peak pharmacologic ECG with no diagnostic ischemic changes. 3. Occasional PVCs noted. 5. Mildly reduced perfusion of the apex which does not change post pharmacological stress. Consider attenuation. 6. The gated Cardiolite study reports an LVEF of 20%. Markedly dilated left ventricle with severe global hypokinesis. This note was generated with [employer] software. It may contain incorrect words, spelling, and punctuation that were not noted in checking the note before signing.
[2023-09-25] MEDS: Potassium Chloride Oral Tablet 20 MEQ PO (14:53)
[2023-09-25] MEDS: Furosemide 40 MG Tablet PO (14:54)
[2023-09-25] MEDS: Carvedilol 12.5 MG Tablet PO (14:54)
[2023-09-25] MEDS: Magnesium Chloride 64 MG Delay Rel.Tablet 128 MG PO (14:55)
[2023-09-25] MEDS: amLODIPine 10 MG Tablet PO (14:56)
--- NOTE | 2023-09-25 14:58 | DCINST_ITS ---
Discharge Instructions Diet Discharge Diet: 1800 Calorie Control Diet Activity Discharge Activity: Return to Normal Activity Weight Bearing Status: Full weight bearing Follow Up Care Test Results: Test results from this visit will be discussed in further detail at your follow- up appointment, if applicable. Discharge Plan Admission Admit Date/Time: 09/22/23 04:11 Primary Reason for Your Visit: CHF, hypertensive emergency Attending Provider: Regino Durham Primary Care Provider: Cm Hand Consulting Providers: Rudolph Yarbrough; Dewey Jordan Discharge Orders/Prescriptions Prescriptions: New furosemide 40 mg Tablet 40 mg PO DAILY Qty: 30 0RF carvedilol 12.5 mg Tablet 12.5 mg PO BID Qty: 60 0RF potassium chloride 20 mEq Tablet,Er Particles/Crystals 20 meq PO DAILY Qty: 30 0RF amlodipine 10 mg Tablet 10 mg PO DAILY Qty: 30 0RF Continued insulin glargine [Lantus U-100 Insulin] 100 unit/mL Solution 30 unit SUBCUT BID Trulicity 0.75 mg/0.5 mL Pen Injector 0.75 mg SUBCUT QWEEK losartan 100 mg tablet 100 mg PO DAILY Referrals / Follow Up: Cm Hand DO [Primary Care Provider] - Within 2 Weeks Disposition Disposition (needs filled in before D/C Order can be placed): Home, Self Care
--- NOTE | 2023-09-25 15:00 | CASEMGMT ---
Patient has order for discharge. RN CM in to discuss needs at discharge. Patient denies needs or help at discharge. Patient had no further questions or concerns.
--- NOTE | 2023-09-25 15:03 | DS.PCM_ITS ---
Providers Date of Admission: 09/22/23 Date of Discharge: 09/25/23 Primary Care Physician: Dr. Cm Hand DO Reason For Visit: ACUTE EXACERBATION OF CHF WITH HYPERTENSIVE URGENC Diagnosis Discharge Diagnosis (1) Respiratory insufficiency: Status: Acute Code(s): R06.89 - Other abnormalities of breathing (2) CHF (congestive heart failure): Status: Acute Code(s): I50.9 - Heart failure, unspecified Qualifiers: Heart failure chronicity: acute on chronic Heart failure type: d iastolic Qualified Code(s): I50.33 - Acute on chronic diastolic (congestive) heart failure Plan 1. Acute systolic congestive heart failure-patient's Lasix was changed to p.o. today #2 hypertensive emergency-due to the fact the patient had congestive heart failure, I feel that he had hypertensive emergency, blood pressure medications were adjusted, patient's Norvasc was increased #3 morbid obesity-complicates care, management, recovery, and prognosis #4 type 2 diabetes-blood sugars will be monitored, sliding scale insulin will be administered as needed #5 cardiomyopathy-etiology unclear, possibly secondary to hypertension-patient will undergo a resting nuclear pharmacological stress test tomorrow Total clinical time spent by myself addressing the patient's medical issues, reviewing all of his data, and collaborating with patient's care team: 35 minutes Medications at Discharge Home Medications dulaglutide 0.75 mg/0.5 mL subcutaneous pen injector (Trulicity) 0.75 mg subcut QWEEK DM 07/09/22 insulin glargine 100 unit/mL subcutaneous solution (Lantus U-100 Insulin) 30 unit subcut BID DM 07/09/22 losartan 100 mg tablet 100 mg PO DAILY blood pressure 09/22/23 amlodipine 10 mg tablet 10 mg PO DAILY #30 tabs 09/25/23 carvedilol 12.5 mg tablet 12.5 mg PO BID #60 tabs 09/25/23 furosemide 40 mg tablet 40 mg PO DAILY #30 tabs 09/25/23 potassium chloride 20 mEq tablet,extended release(part/cryst) 20 meq PO DAILY #30 tabs 09/25/23 Hospital Course Operations None Procedures 2-D Echocardiogram Summary of Care Provided Minutes Spent on Discharge: 32 Hospital Course: This 43-year-old white male was seen in the emergency room at [facility] with complaints of shortness of breath that had been worsening over approximately 7 days, he complained of difficulty breathing when he was lying down. Workup in the emergency room showed a normal CBC, metabolic profile was reviewed and was within normal limits, patient's troponin was slightly elevated at 88, repeat troponin was normal at 77 however. Chest CTA was performed which showed moderate cardiomegaly small right pleural effusion with right basilar atelectasis there was mild interstitial pulmonary edema noted. Patient was felt to have congestive heart failure and hypertensive emergency, he was admitted to PCU and placed on IV diuresis. Echocardiogram was performed which showed a reduced ejection fraction at 30%-previous echocardiogram done a little over a year ago had shown a normal ejection fraction 53%, patient had mild pulmonary hypertension. Patient underwent a nuclear stress test which did not show any evidence of reversible ischemia. On 09/25/2023, patient was seen and examined: On examination he appeared in good health and spirits. Vital signs as documented. Skin warm and dry and without overt rashes. Neck without JVD, neck was supple, trachea midline, thyroid was normal. Lungs clear bilaterally, normal air movement was noted. Heart exam notable for regular rhythm, normal sounds and absence of murmurs, rubs or gallops. Abdomen unremarkable and without evidence of organomegaly, masses, or abdominal aortic enlargement. Bowel sounds are present, abdomen is not distended. Extremities nonedematous, no cyanosis was noted, no clubbing was noted. Neuro: Cranial nerves II through XII are grossly intact, no focal motor deficits were noted, sensation to light touch and pinprick intact, motor exam 5/5 throughout. Psych: Patient is alert and oriented x3, he does not appear anxious or depressed, he does not appear agitated. Patient appeared stable for discharge home on 09/25/2023 Weight / BMI Weight Weight: 123.7 kg Body Mass Index (BMI) 40.2 ABG / Lab / Microbiology Data 09/23/23 05:40 09/23/23 05:40 Laboratory: Laboratory Results - last 24 hr 09/24/23 17:16: POC Glucose 92 09/24/23 21:34: POC Glucose 85 09/25/23 02:56: POC Glucose 87 09/25/23 03:23: Troponin I High Sens 50 09/25/23 05:50: Troponin I High Sens 44 09/25/23 06:37: POC Glucose 101 09/25/23 11:10: POC Glucose 86 09/25/23 11:14: Troponin I High Sens 42 Microbiology: Microbiology 09/21/23 23:25 Mucosa - Nose SARS-CoV-2, Influenza & RSV (PCR) - Final D/C Instructions Discharge Diet: 1800 Calorie Control Diet Weight Bearing Status: Full weight bearing Meaningful Use Info Meaningful Use Meaningful Use Diagnoses (Choose all that apply): CHF CHF ZHANG/ARB ordered at discharge?: Yes Documented LVEF (%): 35 Ischemic Stroke Statin Dosing Therapy Reference: STATIN DOSE THERAPY REFERENCE: * Patients > 75 years receive moderate or high dose statin therapy. * Patients 75 years or YOUNGER should receive HIGH intensity statin dose unless contraindicated. You will be required to document reason for non-treatment if statin daily dose does not meet guidelines. HIGH DOSE STATIN THERAPY DAILY Atorvastatin > than or = to 40 mg Rosuvastatin > than or = to 20 mg Amlodipine + Atorvastatin > than or = to 2.5/40 mg Ezetimibe + Simvastatin 10/80 mg Simvastatin 80mg Discharge Plan Admission Admit Date/Time: 09/22/23 04:11 Primary Reason for Your Visit: CHF, hypertensive emergency Attending Provider: Regino Durham Primary Care Provider: Cm Hand Consulting Providers: Rudolph Yarbrough; Dewey Jordan Discharge Orders/Prescriptions Prescriptions: New furosemide 40 mg Tablet 40 mg PO DAILY Qty: 30 0RF carvedilol 12.5 mg Tablet 12.5 mg PO BID Qty: 60 0RF potassium chloride 20 mEq Tablet,Er Particles/Crystals 20 meq PO DAILY Qty: 30 0RF amlodipine 10 mg Tablet 10 mg PO DAILY Qty: 30 0RF Continued insulin glargine [Lantus U-100 Insulin] 100 unit/mL Solution 30 unit SUBCUT BID Trulicity 0.75 mg/0.5 mL Pen Injector 0.75 mg SUBCUT QWEEK losartan 100 mg tablet 100 mg PO DAILY Referrals / Follow Up: Cm Hand DO [Primary Care Provider] - 09/30/23 1:30 am Disposition Disposition (needs filled in before D/C Order can be placed): Home, Self Care Charges/Coding Visit Charges Inpatient E&M: 12616 Disch Hosp >30min
== END 2023-09-25 15:34 | disposition home or self-care (01) | DRG 194 ==
LOC: ED 09-22 03:44 → PCU 09-22 04:42
PROVIDERS: Family Medicine; Admitting Provider Internal Medicine; Emergency Provider Emergency Medicine; PCP Preventive Medicine Occupational Medicine; Visit Provider Internal Medicine
DX: I11.0 Hypertensive heart disease with heart failure (principal); I50.33 Acute on chronic diastolic (congestive) heart failure; I42.9 Cardiomyopathy, unspecified; Z68.41 Body mass index [BMI] 40.0-44.9, adult; E66.01 Morbid (severe) obesity due to excess calories; E11.9 Type 2 diabetes mellitus without complications; Z79.4 Long term (current) use of insulin; F12.10 Cannabis abuse, uncomplicated; I16.1 Hypertensive emergency; F17.210 Nicotine dependence, cigarettes, uncomplicated; Z79.899 Other long term (current) drug therapy; J45.909 Unspecified asthma, uncomplicated; G47.33 Obstructive sleep apnea (adult) (pediatric); I69.398 Other sequelae of cerebral infarction; R20.0 Anesthesia of skin
CPT/HCPCS: 36415; 71275; 78452; 80048; 80053; 80307; 81001; 82962; 83036; 83735; 83880; 84100; 84443; 84484; 85025; 85379; 87631; 93005; 93017; 93306; 93970; 94668; 96372; 96374; 96375; 96376; 97802; 99221; 99285; A9500; Q9957; Q9967; A4216; C8929; G0378; J1940; J2785

== ENCOUNTER 2024-12-29 06:56 | Emergency (ER) | payer MEDICARE, SELFPAY ==
[2024-12-29] VITALS (11 sets, daily range): BP systolic 129–197; BP diastolic 79–106; PULSE 70–80; RESP 9–18; TEMP 35.8–36.7; O2SAT 93–99; BMI 39.8
--- NOTE | 2024-12-29 07:21 | CT_ITS ---
PROCEDURE: ABDOMEN/PELVIS WITHOUT CONT 12/29/2024 REASON FOR EXAM: KIDNEY STONE TECHNIQUE: ABDOMEN/PELVIS WITHOUT CONT Noncontrast technique limits evaluation of the abdominal and pelvic viscera. Coronal and Sagittal reconstruction series were provided. One or more dose reduction techniques were used (e.g., Automated exposure control, adjustment of the mA and/or kV according to patient size, use of iterative reconstruction technique). RADIATION DOSE SUMMARY: DLP: 1218 mGycm COMPARISON: None FINDINGS: Lung bases: Clear Liver: Unremarkable Gallbladder: Unremarkable Spleen: Unremarkable Pancreas: Unremarkable Adrenals: Unremarkable Kidneys: The right kidney shows no stone or hydronephrosis. There is mild left hydronephrosis with stranding in the periureteral fat in the proximal 3rd. There is no visible stone. Bladder: Unremarkable Reproductive Organs: Unremarkable Bowel: There is a moderate stool load. The small-bowel loops are nondistended. There is no air-fluid levels. Appendix: Normal in appearance Lymph nodes: There is no pathologic adenopathy by size criteria. Vasculature: Atherosclerotic calcifications are noted. Peritoneum / Retroperitoneum: There is no free air or free fluid. Bones: There is no acute bony abnormality. CT/Abdomen/Pelvis without Cont IMPRESSION: There is mild left hydronephrosis with stranding in the periureteral fat in the proximal 3rd. There is no visible stone. Consider excretory urogram for further characterization. [facility]
--- NOTE | 2024-12-29 07:21 | EX.ED.DYSGE1 ---
HPI History of Present Illness Chief Complaint: Flank Pain Narrative Narrative: 44-year-old male past medical history of diabetes on Trulicity, hypertension, presents with his aunt for left flank pain that began approximately 1 to 2 days ago. States it was sudden onset. Last night he broke out in a cold sweat. He describes the pain as both dull and achy and sharp and stabbing at times. No exacerbating or alleviating factors. No fevers or chills, no nausea or vomiting, no hematuria or dysuria. [facility] Medical History D-dimer, elevated Respiratory insufficiency Hypertensive urgency JARAD (obstructive sleep apnea) Asthma Hypertension Diabetes Hx of completed stroke Home Medications ?Medication ?Instructions ?Recorded ?Last Taken ?Type dulaglutide 0.75 mg/0.5 mL 0.75 mg subcut QWEEK DM 07/09/22 07/05/22 History subcutaneous pen injector (Trulicity) insulin glargine 100 unit/mL 30 unit subcut BID DM 07/09/22 07/08/22 History subcutaneous solution (Lantus U-100 Insulin) losartan 100 mg tablet 100 mg PO DAILY blood pressure 09/22/23 Unknown History amlodipine 10 mg tablet 10 mg PO DAILY #30 tabs 09/25/23 Unknown Rx carvedilol 12.5 mg tablet 12.5 mg PO BID #60 tabs 09/25/23 Unknown Rx furosemide 40 mg tablet 40 mg PO DAILY #30 tabs 09/25/23 Unknown Rx potassium chloride 20 mEq 20 meq PO DAILY #30 tabs 09/25/23 Unknown Rx tablet,extended release(part/cryst) Allergy/AdvReac Type Severity Reaction Status Date / Time No Known Allergies Allergy Verified 12/29/24 06:57 Family History Other Heart disease Surgical History History of foot surgery Social History Smoking Status: Current every day smoker tobacco type: cigarettes substance use type: marijuana ROS ROS ED ROS Narrative Review of systems positive for left flank pain. Does not radiate towards the front. No fevers, but states had cold sweats last night. No nausea or vomiting. No dysuria or hematuria. No exacerbating or alleviating factors. Complains of dry mouth. EXAM Physical Exam Narrative Exam Narrative: Afebrile. Vital signs noted. Nontoxic-appearing. Cardiovascular examination reveals a regular rate and rhythm. Lungs are clear to auscultation bilaterally. Abdomen is soft, nontender, with positive bowel sounds. No guarding or rebound. Questionable tenderness to percussion left CVA. Neurological examination nonfocal, nonlateralizing. Sitting upright on bed. Const Vital Signs: 12/29/24 06:57 12/29/24 07:04 12/29/24 08:04 Temperature 97.5 F L 98.1 F 97.8 F Temperature Source Oral Oral Oral Pulse Rate 76 76 77 Respiratory Rate 18 9 L 15 Blood Pressure 196/93 H 196/93 H 197/97 H Blood Pressure Mean 127 127 130 Pulse Ox 99 93 97 Oxygen Delivery Method Room Air Room Air Room Air 12/29/24 09:12 12/29/24 10:24 12/29/24 11:00 Temperature 96.5 F L 97.8 F Temperature Source Oral Oral Pulse Rate 73 80 77 Respiratory Rate 16 18 16 Blood Pressure 151/84 H 129/83 H 143/79 H Blood Pressure Mean 106 98 100 Pulse Ox 93 93 94 Oxygen Delivery Method Room Air Room Air Room Air 12/29/24 11:19 12/29/24 12:00 Temperature 97.6 F L Temperature Source Temporal Pulse Rate 72 72 Respiratory Rate 16 14 Blood Pressure 139/106 H 164/92 H Blood Pressure Mean 117 116 Pulse Ox 97 99 Oxygen Delivery Method Room Air Room Air MDM MDM MDM Narrative Medical decision making narrative: The differential diagnosis includes but not limited to ureterolithiasis versus pyelonephritis versus musculoskeletal flank pain. Kidney stone workup was pursued. I do feel CT imaging is indicated. He was administered morphine and Toradol for analgesia. I reviewed his laboratory work and he has a leukocytosis of 20.4 with hemoglobin 15.2, hematocrit 44.9, platelet count normal at 243. BMP is significant for glucose of 380 with anion gap normal at 13 so I doubt diabetic ketoacidosis, BUN and creatinine are normal. Given his leukocytosis, I did add a lactic acid which is normal at 1.6. Urinalysis is negative for infection with WBC count of 0 and RBC 0. No bacteria. I do not feel antibiotics are indicated. In review of his CT radiology report he does have left hydronephrosis with fat stranding. This is in the proximal third and the periureteral fat although there is no visible stone. Given his leukocytosis, and hydronephrosis, I do feel he needs further workup and consultation with urology, but urology is unavailable at this facility at this time. I discussed the patient with Dr. Barry at [facility] who has accepted him in transfer. He requested that the patient be given Rocephin 2 g intravenously. I feel he can be transferred in stable condition. His family was concerned about his elevated blood glucose. It was elevated at 245 and he was given insulin 6 units of regular as he had already taken approximately 20 units of his Lantus this morning and he usually takes 30 units twice a day. Disposition is transferred in stable condition. History & Record Review Discussion w/independent historian: Patient Additional record(s) reviewed:: Prior ED visit (Seen for Mejias's palsy, noncontributory to current chief complaint) Lab Data Attestation: I reviewed the patient's lab results. Labs: Laboratory Results - last 24 hr 12/29/24 12/29/24 12/29/24 07:25 07:31 08:50 WBC 20.4 H RBC 5.47 Hgb 15.2 Hct 44.9 MCV 82.1 MCH 27.8 MCHC 33.9 RDW Std Deviation 39.0 RDW Coeff of Jono 13.1 Plt Count 243 MPV 9.7 Immature Gran % (Auto) 0.500 Neut % (Auto) 81.8 H Lymph % (Auto) 10.8 L [place] % (Auto) 5.7 Eos % (Auto) 0.7 Baso % (Auto) 0.5 Absolute Neuts (auto) 16.6 H Absolute Lymphs (auto) 2.20 Nucleated RBC % 0 Sodium 134 Potassium 4.6 Chloride 99 Carbon Dioxide 22.6 Anion Gap 13 BUN 15 Creatinine 0.75 Estim Creat Clear Calc 159.07 Est GFR (MDRD) Non-Af 113 BUN/Creatinine Ratio 20.4 H Glucose 380 H Lactic Acid 1.6 Calcium 9.1 Urine Color Yellow Urine Clarity Clear Urine pH 7.0 Ur Specific Hermon 1.010 Urine Protein Negative Urine Glucose (UA) 1000 H Urine Ketones Negative Urine Occult Blood 10 H Urine Nitrite Negative Urine Bilirubin Negative Urine Urobilinogen Normal Ur Leukocyte Esterase Negative Urine RBC 0 SEEN Urine WBC 0 SEEN Ur Squamous Epith Cells 0 SEEN Urine Bacteria 0 SEEN Urine Mucus 0 SEEN POC Glucose 12/29/24 11:21 WBC RBC Hgb Hct MCV MCH MCHC RDW Std Deviation RDW Coeff of Jono Plt Count MPV Immature Gran % (Auto) Neut % (Auto) Lymph % (Auto) [place] % (Auto) Eos % (Auto) Baso % (Auto) Absolute Neuts (auto) Absolute Lymphs (auto) Nucleated RBC % Sodium Potassium Chloride Carbon Dioxide Anion Gap BUN Creatinine Estim Creat Clear Calc Est GFR (MDRD) Non-Af BUN/Creatinine Ratio Glucose Lactic Acid Calcium Urine Color Urine Clarity Urine pH Ur Specific Hermon Urine Protein Urine Glucose (UA) Urine Ketones Urine Occult Blood Urine Nitrite Urine Bilirubin Urine Urobilinogen Ur Leukocyte Esterase Urine RBC Urine WBC Ur Squamous Epith Cells Urine Bacteria Urine Mucus POC Glucose 245 H Radiography Diagnostic Testing: Clinical Impression(s) from Imaging Studies Abdomen/Pelvis CT 12/29/24 07:21 IMPRESSION: There is mild left hydronephrosis with stranding in the periureteral fat in the proximal 3rd. There is no visible stone. Consider excretory urogram for further characterization. Reading Location: [facility] Management Discussion w/another healthcare provider: Hospitalist (Dr. Barry at [facility]) Discharge Plan Triage Chief Complaint: Flank Pain ED Provider: Josh Toledo Dx/Rx/DC Orders Clinical Impression: Hydronephrosis, Leukocytosis, Hyperglycemia Prescriptions: No Action insulin glargine [Lantus U-100 Insulin] 100 unit/mL Solution 30 unit SUBCUT BID Trulicity 0.75 mg/0.5 mL Pen Injector 0.75 mg SUBCUT QWEEK losartan 100 mg tablet 100 mg PO DAILY furosemide 40 mg Tablet 40 mg PO DAILY Qty: 30 0RF carvedilol 12.5 mg Tablet 12.5 mg PO BID Qty: 60 0RF potassium chloride 20 mEq Tablet,Er Particles/Crystals 20 meq PO DAILY Qty: 30 0RF amlodipine 10 mg Tablet 10 mg PO DAILY Qty: 30 0RF Primary Care Provider: Cm Hand Referrals: Cm Hand DO [Primary Care Provider] - Print Language: Chadian Disposition Disposition: Acute Care Hospital
[2024-12-29] MEDS: 0.9% Normal Saline (1000mL) 1,000 ML 250 ML IV ×2 (07:36→12:45)
[2024-12-29 07:38] LABS: Hematocrit 44.9 % (40-54); Hemoglobin 15.2 g/dL (13.0-16.5); Immature Granulocytes Count 0.110 X10^3/uL (0.0-0.0); Mean Corp Hgb Conc 33.9 g/dL (32-36); Mean Corpuscular Volume 82.1 fL (80-94); Mean Platelet Vol. 9.7 fl (6.2-12.0); NRBC Flagged by Analyzer 0 % (0-5); Platelet Count 243 K/mm3 (150-450); RBC Distribution Width CV 13.1 % (11.6-14.6); RBC Distribution Width SD 39.0 fl (35.1-43.9); Red Blood Count 5.47 M/mm3 (4.6-6.2); White Blood Count 20.4 K/mm3 (4.4-11.0)
[2024-12-29 07:52] LABS: Mucous, Urine 0 SEEN /hpf (<or=2+); Red Blood Cells-Urine 0 SEEN /hpf (0-5); Squamous Epithelial Cells - UA 0 SEEN /hpf (0-5)
[2024-12-29 07:55] LABS: Color, Urine Yellow (Yellow); Glucose, Dipstick 1000 mg/dl (Normal); Ketone-Dipstick Negative (Negative); Leukocyte Esterase-Dipstick Negative /ul (Negative); Nitrite-Dipstick Negative (Negative); Occult Blood-Urine 10 /ul (Negative); Protein-Dipstick Negative (Negative); Specific Gravity, Urine 1.010 (1.002-1.030); Urine Bilirubin Dipstick Negative (Negative)
[2024-12-29 08:47] LABS: Anion Gap 13 (5-15); BUN 15 mg/dL (4-19); BUN/Creat Ratio 20.4 RATIO (10-20); Calcium,Total 9.1 mg/dL (7.6-11.0); Carbon Dioxide 22.6 mmol/L (21.0-32.0); Chloride 99 mmol/L (98-108); Estimated Creatinine Clearance 159.07 ml/min (50-250); Glucose 380 mg/dL (70-99); Potassium 4.6 mmol/L (3.3-5.1)
[2024-12-29] MEDS: Ceftriaxone 2 GM in 0.9% Normal Saline (50mL MB+) 50 ML IV (12:44)
--- NOTE | 2024-12-29 14:00 | ED.RN ---
Accepted at [address] 2 [address]2N [id number]
--- NOTE | 2024-12-29 14:13 | ED.RN ---
Physicians called and has an ETA of 45 min
--- NOTE | 2024-12-29 15:28 | ED.RN ---
report called to nurse at [facility].
== END 2024-12-29 15:32 | disposition short-term general hospital (02) ==
PROVIDERS: Emergency Provider Emergency Medicine; PCP Preventive Medicine Occupational Medicine; Visit Provider Emergency Medicine
DX: N13.30 Unspecified hydronephrosis (principal); E11.65 Type 2 diabetes mellitus with hyperglycemia; Z79.4 Long term (current) use of insulin; D72.829 Elevated white blood cell count, unspecified; I10 Essential (primary) hypertension; J45.909 Unspecified asthma, uncomplicated; F17.210 Nicotine dependence, cigarettes, uncomplicated; G47.33 Obstructive sleep apnea (adult) (pediatric); Z79.85 Long-term (current) use of injectable non-insulin antidiabetic drugs; Z79.899 Other long term (current) drug therapy
CPT/HCPCS: 74176; 80048; 81001; 82962; 83605; 85025; 96365; 96372; 96375; 96376; 99285; 99291; A4216; J0696; J2405